=== PATIENT | male | born 1960 | race Caucasian/White ===

== ENCOUNTER 2016-12-10 13:47 | Inpatient (IN) | payer MEDICARE, OTHER ==
[~2016-12-10] VITALS: Ht 182.9 cm; Wt 68.0 kg
[~2016-12-10 13:47] MED LIST: /ADVA50050; /PANT40TA PO; APAP325T PO; CARA1TAB2 PO; CELE20TA; CHLO0.124 MT; CIPR25SS OR; CIPR500S PO; CIPR500T89 PO; CLON1TAB PO; DILA2TAB2 PO; DILAUDID PO; DRON2.5C4 PO; ENTO3CAP5 PO; ERYT25TA PO; FERR325T3 PO; FLAG500T OR; FLAG500T PO; FOLI1TAB2 PO; FOLI1TAB86 PO; GUAI100S7 PO; HEPA500020 SQ; IBUP400T OR; IMOD2TAB16 PO; INSUH10VL SC; LEVS0.123 SL; LOPE2TAB PO; LOPE2TAB3 PO; LOPERAMIDE PO; LYRI75CA PO; MAGN1TAB25 PO; MAGN200T3 PO; MAGN400T5 PO; MAGN500T PO; MARI10CA PO; MESA24CASA PO; METO10TA2 PO; METR1CAP PO; MICR10CA PO; MOBI7.5T10 PO; MS C30TA PO; MYLASSUD OR; MYLI40DR PO; NAPRPOW4 PO; NEUR300C PO; NEUR600T PO; NEXI20CA PO; NEXI40CA PO; NEXIUM PO; NICO14DI3 TD; NICO21DI26 EXT; NICO21DI4 TD; NICO21DI5 TD; NICO21PAT TD; NYST10CR TOP; ONDA4INJ48 IV; ONDA4TAB6 PO; OXYC-517 PO; OXYC15TA76 PO; OXYC1SOL PO; OXYC5CAP28 PO; PENT500C PO; PENT500C4 PO; PENTASA MT; PENTASA PO; PERC5TAB PO; PERCOCET PO; POTA20TA2; PRED10TA2 OR; PRED1TAB32 PO; PRIL40CA PO; PROT1TAB2 PO; QUES4POW PO; QUET1TAB7 PO; REGL10TA6 PO; REME15TA PO; SALI0.9I2 IV; SERO50TA PO; SUCR1SS PO; TRAZ100T; TYLE1TAB5 PO; TYLE325T5 PO; Thiamine Hcl PO; VANC125C2 PO; VIT D PO; VITA100T60 PO; VITMTA PO; ZOFR8TAB PO; ZOFRAN SL; ZOLO100T PO; magnesium PO; tpn IV
[2016-12-10] MEDS ORDERED: OXYC1SOL PO (13:59)
[2016-12-10] MEDS ORDERED: IBUP600T26 PO (13:59)
[2016-12-10] MEDS ORDERED: PRIL20CA9 PO (13:59)
[2016-12-10] MEDS ORDERED: KETOROLAC 30 MG/ML VIAL (J1885) IV ONE (14:30)
[2016-12-10] MEDS ORDERED: ONDANSETRON 4MG/2ML VIAL (J2405) IV ONE (14:30)
[2016-12-10] MEDS ORDERED: NS 1,000 ML IV ONE (14:30)
[2016-12-10] MEDS ORDERED: PANTOPRAZOLE 40MG INJ (PROTONIX) (C9113) IV ONE (14:30)
[2016-12-10 15:00] LABS: BASO % 0.3 % (0.0-1.0); EOS # 0.3 K/mm3 (0.0-0.50); EOS % 2.2 % (0.0-3.0); LARGE UNSTAINED CELL # 0.1 K/mm3 (0.0-0.4); LARGE UNSTAINED CELL % 1.1 % (0.0-4.0); LYMPH # 2.2 K/mm3 (1.5-4.5); LYMPH % 16.5 % (24.0-44.0); MEAN CORPUSCULAR HEMOGLOBIN 29.6 pg (27.0-33.0); MEAN CORPUSCULAR HGB CONC 31.6 g/dl (32.0-36.5); MEAN CORPUSCULAR VOLUME 93.7 fl (80.0-96.0); MONO # 0.7 K/mm3 (0.0-0.8); MONO % 5.5 % (0.0-5.0); NEUTROPHILS # 9.3 K/mm3 (1.8-7.7); NEUTROPHILS % 74.3 % (36.0-66.0); PLATELET COUNT, AUTOMATED 345 k/mm3 (150-450); RED CELL DISTRIBUTION WIDTH 14.5 % (11.5-14.5); WHITE BLOOD COUNT 12.5 K/mm3 (4.0-10.0)
[2016-12-10 16:03] LABS: ALBUMIN 2.5 GM/DL (3.2-5.2); ALBUMIN/GLOBULIN RATIO 0.74 (1.00-1.93); ALKALINE PHOSPHATASE 103 U/L (45-117); ALT/SGPT 39 U/L (12-78); AMYLASE 127 U/L (25-115); ANION GAP 9 MEQ/L (8-16); AST/SGOT 50 U/L (15-37); BILIRUBIN,DIRECT < 0.1 MG/DL (0.0-0.2); BILIRUBIN,TOTAL 0.2 MG/DL (0.2-1.0); BLOOD UREA NITROGEN 20 MG/DL (7-18); CALCIUM LEVEL 7.9 MG/DL (8.5-10.1); CARBON DIOXIDE LEVEL 23 MEQ/L (21-32); CHLORIDE LEVEL 109 MEQ/L (98-107); CREATININE FOR GFR 0.82 MG/DL (0.70-1.30); GLOMERULAR FILTRATION RATE > 60.0 (>56); GLUCOSE, FASTING 116 MG/DL (70-105); POTASSIUM SERUM 4.5 MEQ/L (3.5-5.1); SODIUM LEVEL 141 MEQ/L (136-145); TOTAL PROTEIN 5.9 GM/DL (6.4-8.2)
[2016-12-10] MEDS ORDERED: ISOVUE-370 76% 100ML VIAL (Q9967) As Ordered ONE (16:12)
--- NOTE | 2016-12-10 16:43 | REP ---
Clinical: Left lower quadrant pain. Technique: Axial contrast enhanced images from the lung bases to the pubic symphysis using 100 ml Isovue 370 intravenous contrast material with coronal and sagittal re-formations. Comparison: 12/31/2015. Findings: Inflammatory changes in the left upper abdomen surrounding the distal pancreatic body and tail with a presumed pseudocyst measuring 2.3 cm maximal diameter which has slightly increased from prior examination as well as pancreatic parenchymal calcifications suggest acute pancreatitis with sequelae of prior/chronic pancreatitis. Liver, bilateral adrenal glands and kidneys are normal. Spleen demonstrates parenchymal calcifications suggesting prior granulomatous disease. Evidence for prior cholecystectomy. There is evidence for prior partial bowel resection and residual small and large bowel is without obstruction or acute inflammatory process. Pelvis demonstrates normal bladder and age appropriate prostate gland. No significant ascites. No obvious adenopathy. No free air. Abdominal aorta without aneurysm. Musculoskeletal structures intact. Lung bases demonstrate subtle/early right lower lobe infiltrate. Impression: 1. Findings described above suggest acute pancreatitis with sequelae of prior/chronic pancreatitis including 2.3 cm pseudocyst inseparable from the gastric cardia which is slightly increased from prior examination as well as pancreatic parenchymal calcifications. 2. Subtle early right lower lobe pneumonia. Signed by Rod Bernabe MD 12/10/2016 04:34 P
[2016-12-10] MEDS ORDERED: PERCOCET 5MG/325MG TAB PO PRN ×2 (17:15)
[2016-12-10] MEDS ORDERED: ONDANSETRON 4MG/2ML VIAL (J2405) IV PRN (17:15)
[2016-12-10] MEDS ORDERED: IPRATROPIUM 0.5MG/ALBUTEROL 2.5MG INH SOL UD 3ML (DUONEB)(J7620) NEB PRN (17:45)
[2016-12-10] MEDS ORDERED: HYDROmorphone HCL 2 MG/ML 1ML VIAL (J1170) IV PRN (17:45)
--- NOTE | 2016-12-10 17:48 | HPE ---
DATE OF ADMISSION: 12/10/2016 PRIMARY CARE PROVIDER: DONA Workman CODE STATUS: Full code. CURRENT LIVING CONDITION: The patient is currently an inmate with [facility]. CHIEF COMPLAINT: Abdominal pain for last 2 to 3 days. HISTORY OF PRESENT ILLNESS: Mr. Michaud is a familiar 55-year-old gentleman with known history of chronic/recurrent pancreatitis and Crohn disease, which is thought to be in remission; has quit drinking alcohol several times in the past, but states he has not had any recently since his incarceration began. He denies any tobacco use. He describes having epigastric abdominal pain with radiation to the back similar to previous episodes in the past. He denies any nausea, vomiting, no hematemesis. Bowel movements have been regular. Denies any hematochezia or melena. He was evaluated by the advance practice provider in the emergency department. He had an elevated lipase and findings on CT scan consistent with acute pancreatitis. He was given IV hydration already and given some pain medication, which is knocked his pain level from a 9 out of 10 to a 7 out 10 currently. The hospitalist service was called for admission for admission. PAST MEDICAL HISTORY: 1. Recurrent pancreatitis. 2. Crohn disease. 3. Gastroesophageal reflux disease (GERD). 4. Malnutrition. PAST SURGICAL HISTORY: 1. Cholecystectomy 2. Appendectomy. 3. Hernia repair. 4. Status post bowel perforation due to Crohn disease, colostomy and reversal by Dr. Silveira several years ago. SOCIAL HISTORY: He as a previous history of drinking alcohol, quit several months ago. Denies any tobacco use currently. Denies recent travel. No sick contacts. FAMILY HISTORY: Both parents her . States that he is only aware that his mother from multiple complications from cancer. ALLERGIES: PENICILLIN, MORPHINE. HOME MEDICATIONS: - Imodium as needed - Remeron 50 mg daily - Neurontin 900 mg three times a day - oxycodone as needed - Meloxicam 7.5 mg daily We will wait for pharmacy to further reconcile his home medication list. REVIEW OF SYSTEMS: Constitutional: He denies fevers, chills or rigors. Has had some nausea with no vomiting, decreased appetite. HEENT: Denies headache, lightheadedness, dizziness, blurry vision, double vision or tinnitus. No difficulty with speech or swallow. Pulmonary: Denies productive sputum cough or hemoptysis. Cardiovascular: No paroxysmal nocturnal dyspnea (PND), orthopnea. No substernal chest pain. GI: Describes having some epigastric pain with some radiation. Has had regular bowel movements. Denies any hematochezia or melena. : No dysuria, frequency, or hematuria. Musculoskeletal: No bone loss or joint pain, swelling or erythema. Neuro: No paresthesias or paralysis. Endocrine: Negative for diabetes. Negative for thyroid disorder. Lymphatics: No lumps, bumps, swelling in neck, axilla or groin. No night sweats. No weight loss. Hematology: No bleeding or bruises. No prior history of venous thromboembolism. Oncology: No history of cancer. Psychiatric: No history of depression, suicidal ideation or visual hallucination. 10-point review of systems complete, pertinent positives are listed. PHYSICAL EXAMINATION: Temperature is 98.2, pulse 86, respiratory rate 18, BP 137/74, SPO2 100% on room air. General: The patient appears to be in no acute distress, alert, pleasant. HEENT: Unremarkable. Lungs: Clear. Heart: Regular rate and rhythm. Abdomen: Epigastric tenderness. No rebound. Positive bowel sounds. Extremities: No edema or calf tenderness. Neuro: Cranial nerves II through XII grossly intact. No focal deficits. LABORATORY DATA: White count 12.5, hemoglobin 11.5 and platelets for 345,000, sodium 141, potassium 4.5, chloride 109, bicarb 23, anion gap 9, BUN is 20, creatinine 0.82, glucose 116, total bilirubin 0.2, direct bilirubin less than 0.1, AST is 50, ALT 39, alkaline phosphatase 103, albumin is 2.5, lipase 543, amylase 127. Urinalysis is clear. Urine cultures pending. CT ABDOMEN AND PELVIS: Acute pancreatitis with sequela of prior chronic pancreatitis including 2.3 cm pseudocyst inseparable from gastric cardia which is slightly increased from prior examination as well as pancreatic parenchymal calcifications. Subtle early right lower lobe pneumonia. IMPRESSION: Mr. Michaud is a 56-year-old gentleman with prior history of Crohn and recurrent pancreatitis, presents to the emergency department abdominal pain, elevated lipase and CT findings consistent with pancreatitis and known pseudocyst. Will need to be admitted with IV fluids, pain control and bowel rest. PROBLEM LIST: 1. Acute/recurrent pancreatitis. 2. History of pseudocyst of the pancreas. 3. Possible right lower lobe pneumonia. 4. GERD. 5. Protein calorie malnutrition. PLAN: The patient will be admitted to med-surg, will continue with IV fluids, bowel rest, pain control. Due to findings of possible right lower lobe pneumonia will go ahead and start him on IV Levaquin. Deep venous thrombosis (DVT) prophylaxis with heparin. Patient and Family Services (PFS) consult as well as physical therapy consult and will see how he progresses over the next 24-48 hours.
[2016-12-10] MEDS ORDERED: LYRI100C10 PO (17:52)
[2016-12-10] MEDS ORDERED: OXYC1TAB23 PO (17:52)
[2016-12-10] MEDS ORDERED: LOPERAMIDE 2 MG CAP PO PRN (18:15)
[2016-12-10] MEDS ORDERED: METOCLOPRAMIDE 10 MG TAB PO PRN (18:15)
[2016-12-10] MEDS: NS 1,000 ML IV SCH ×2 (18:29→23:26)
[2016-12-10] MEDS: HYDROmorphone HCL 1 MG/ML SYRINGE (J1170) IV PRN (18:36)
[2016-12-10] MEDS: OMEPRAZOLE 20 MG CAP PO SCH (18:38)
[2016-12-10] MEDS: LevoFLOXacin IV 500 MG in APPROPRIATE DILUENT 1 EA IV SCH (20:28)
[2016-12-10] MEDS: ACETAMINOPHEN TAB 650MG DOSE (2X325MG) PO PRN (20:28)
[2016-12-10] MEDS: PREGABALIN 100 MG CAP (LYRICA) PO SCH (20:29)
[2016-12-10] MEDS: MIRTAZAPINE 15 MG TAB PO SCH (20:29)
[2016-12-10] MEDS: MELOXICAM (MOBIC) 7.5 MG TAB PO SCH (20:29)
[2016-12-10] MEDS: QUEtiapine FUMARATE 50 MG TAB PO SCH (20:29)
[2016-12-10] MEDS: GABAPENTIN 300 MG CAP PO SCH (20:29)
[2016-12-10] MEDS: HEPARIN SOD (PORCINE) 5000 UNITS/ML VIAL SQ SCH (21:11)
[2016-12-10] MEDS: oxyCODONE 5MG TAB PO PRN (21:11)
[2016-12-10 22:00] VITALS: BP 124/73
[2016-12-10] MEDS ORDERED: IBUPROFEN 600 MG TAB PO PRN (22:00)
[2016-12-11] MEDS: NS 1,000 ML IV SCH ×6 (03:30→21:07)
[2016-12-11] MEDS: oxyCODONE 5MG TAB PO PRN ×3 (03:30→19:44)
[2016-12-11] MEDS: HEPARIN SOD (PORCINE) 5000 UNITS/ML VIAL SQ SCH ×3 (05:23→21:06)
[2016-12-11] MEDS: HYDROmorphone HCL 1 MG/ML SYRINGE (J1170) IV PRN ×3 (05:28→09:01)
[2016-12-11 06:00] VITALS: BP 135/77
[2016-12-11 07:33] LABS: ALBUMIN/GLOBULIN RATIO 0.53 (1.00-1.93); ALKALINE PHOSPHATASE 86 U/L (45-117); ALT/SGPT 40 U/L (12-78); ANION GAP 8 MEQ/L (8-16); AST/SGOT 51 U/L (15-37); BILIRUBIN,TOTAL 0.3 MG/DL (0.2-1.0); BLOOD UREA NITROGEN 14 MG/DL (7-18); CALCIUM LEVEL 7.8 MG/DL (8.5-10.1); CARBON DIOXIDE LEVEL 21 MEQ/L (21-32); CHLORIDE LEVEL 111 MEQ/L (98-107); CREATININE FOR GFR 0.67 MG/DL (0.70-1.30); GLOMERULAR FILTRATION RATE > 60.0 (>56); GLUCOSE, FASTING 74 MG/DL (70-105); POTASSIUM SERUM 4.2 MEQ/L (3.5-5.1); SODIUM LEVEL 140 MEQ/L (136-145); TOTAL PROTEIN 5.8 GM/DL (6.4-8.2)
[2016-12-11] MEDS: IPRATROPIUM 0.5MG/ALBUTEROL 2.5MG INH SOL UD 3ML (DUONEB)(J7620) NEB SCH ×3 (08:00→23:19)
[2016-12-11] MEDS: OMEPRAZOLE 20 MG CAP PO SCH (09:00)
[2016-12-11] MEDS: GABAPENTIN 300 MG CAP PO SCH ×3 (09:01→21:06)
[2016-12-11] MEDS: PREGABALIN 100 MG CAP (LYRICA) PO SCH ×3 (09:01→21:06)
[2016-12-11] MEDS: ACETAMINOPHEN TAB 650MG DOSE (2X325MG) PO PRN ×2 (09:18→19:32)
[2016-12-11 09:36] LABS: MEAN CORPUSCULAR HEMOGLOBIN 30.8 pg (27.0-33.0); MEAN CORPUSCULAR HGB CONC 32.6 g/dl (32.0-36.5); MEAN CORPUSCULAR VOLUME 94.4 fl (80.0-96.0); RED CELL DISTRIBUTION WIDTH 14.4 % (11.5-14.5)
[2016-12-11 14:00] VITALS: BP 144/84
--- NOTE | 2016-12-11 15:31 | IPNPDOC ---
Subjective Date Seen The patient was seen on 12/11/16. Subjective Chief Complaint/HPI The patient is a 56-year-old male admitted with a reason for visit of Acute Pancreatitis. Events since last encounter pt seen and examined, complaining of abd pain Constitutional: Denies: Chills, Fever, Night Sweats Gastrointestinal: Reports: Abdominal Pain, Denies: Constipation, Diarrhea, Nausea, Vomiting Objective Physical Examination General Exam: Positive: Alert, Cooperative, No Acute Distress Eye Exam: Positive: PERRLA Neck Exam: Positive: Supple, Negative: JVD, thyromegaly Chest Exam: Positive: Clear to auscultation, Normal air movement Abdomen Exam: Positive: Normal bowel sounds, Soft, Negative: Hepatospenomegaly, Tenderness Extremity Exam: Positive: Normal pulses, Negative: Clubbing, Cyanosis, Edema Assessment /Plan Problems (1) Abdominal pain Onset Date: 04/15/2014 Status: Chronic Problem Text: * pt has chronic pain but has been complaining of pain in his abd * he had elevated lipase level on admission and acute pancreatitis * now lipase level normalized * will start clear liquid diet advance as tolerated * if able to tolerate diet will discontinue Dilaudid * order MRCP per surgery recommendation (2) Elevated lipase Onset Date: 04/15/2014 Status: Resolved (3) Crohn disease Status: Chronic (4) Chronic pancreatitis Status: Acute Problem Text: * will order MRCP (5) Pancreatic pseudocyst Status: Chronic Response to Treatment: Stable Problem Text: * pt had pseudocyst on CT in the past * slight increase in size * spoke with surgeon emotional disabilities teacher dr alcantara who didn't recommend any drainage at this time given it's current size and the fact that it has not increased in size * he recommended MRCP and repeat CT in 3 months if MRCP is negative Plan/VTE VTE Prophylaxis Ordered?: Yes VS, I&O, 24H, Fishbone Vital Signs/I&O Vital Signs Date Time Temp Pulse Resp B/P Pulse Ox O2 Delivery O2 Flow Rate FiO2 12/11/16 13:39 18 12/11/16 09:01 Room Air 12/11/16 06:00 98.2 68 135/77 99 I&O- Last 24 Hours up to 6 AM 12/11/16 06:00 Intake Total 120 ml Output Total 1700 ml Balance -1580 ml Laboratory Data 24H LABS Laboratory Tests 2 12/10/16 15:27: Aspartate Amino Transf (AST/SGOT) 50H, Alanine Aminotransferase (ALT/SGPT) 39, Alkaline Phosphatase 103, Total Bilirubin 0.2, Direct Bilirubin < 0.1, Albumin 2.5L, Albumin/Globulin Ratio 0.74L, Amylase Level 127H, Anion Gap 9, Calcium Level 7.9L, Glomerular Filtration Rate > 60.0, Lipase 543H, Total Protein 5.9L 12/11/16 06:40: Aspartate Amino Transf (AST/SGOT) 51H, Alanine Aminotransferase (ALT/SGPT) 40, Alkaline Phosphatase 86, Total Bilirubin 0.3, Albumin 2.0L, Albumin/Globulin Ratio 0.53L, Anion Gap 8, Calcium Level 7.8L, Glomerular Filtration Rate > 60.0 , Lipase 310, Total Protein 5.8L, Blood Urea Nitrogen 14, Creatinine 0.67L, Sodium Level 140, Potassium Level 4.2, Chloride Level 111H, Carbon Dioxide Level 21 12/11/16 13:35: Prostate Specific Antigen 0.36 CBC/BMP Laboratory Tests 12/10/16 15:27 12/11/16 06:40 Calcium Level 7.8 L, Aspartate Amino Transf (AST/SGOT) 51 H, Alanine Aminotransferase (ALT/SGPT) 40, Alkaline Phosphatase 86, Total Bilirubin 0.3, Total Protein 5.8 L, Albumin 2.0 L 12/11/16 09:02 Red Blood Count 3.61 L, Mean Corpuscular Volume 94.4, Mean Corpuscular Hemoglobin 30.8, Mean Corpuscular Hemoglobin Concent 32.6, Red Cell Distribution Width 14.4 ZARA SCHAFER DO Dec 11, 2016 15:31
[2016-12-11] MEDS: MORPHINE 2 MG/ML 1ML SYRINGE IV PRN (16:00)
[2016-12-11] MEDS: LevoFLOXacin IV 500 MG in APPROPRIATE DILUENT 1 EA IV SCH (19:43)
[2016-12-11] MEDS: MELOXICAM (MOBIC) 7.5 MG TAB PO SCH (21:06)
[2016-12-11] MEDS: MIRTAZAPINE 15 MG TAB PO SCH (21:06)
[2016-12-11] MEDS: QUEtiapine FUMARATE 50 MG TAB PO SCH (21:06)
[2016-12-11 22:00] VITALS: BP 132/84
[2016-12-12] MEDS: NS 1,000 ML IV SCH ×6 (02:58→21:03)
[2016-12-12] MEDS: oxyCODONE 5MG TAB PO PRN ×4 (04:06→22:48)
[2016-12-12] MEDS: HEPARIN SOD (PORCINE) 5000 UNITS/ML VIAL SQ SCH ×3 (05:19→21:03)
[2016-12-12] MEDS: ACETAMINOPHEN TAB 650MG DOSE (2X325MG) PO PRN ×3 (05:23→21:03)
[2016-12-12] MEDS: MORPHINE 2 MG/ML 1ML SYRINGE IV PRN ×4 (05:57→19:27)
[2016-12-12 06:00] VITALS: BP 124/72
[2016-12-12 07:18] LABS: BLOOD UREA NITROGEN 10 MG/DL (7-18); CREATININE FOR GFR 0.76 MG/DL (0.70-1.30); GLUCOSE, FASTING 84 MG/DL (70-105); MEAN CORPUSCULAR HEMOGLOBIN 30.3 pg (27.0-33.0); MEAN CORPUSCULAR HGB CONC 32.5 g/dl (32.0-36.5); MEAN CORPUSCULAR VOLUME 93.2 fl (80.0-96.0); RED CELL DISTRIBUTION WIDTH 14.5 % (11.5-14.5); WHITE BLOOD COUNT 10.6 K/mm3 (4.0-10.0)
[2016-12-12 07:19] LABS: ALBUMIN 2.4 GM/DL (3.2-5.2); ALKALINE PHOSPHATASE 93 U/L (45-117); ALT/SGPT 39 U/L (12-78); ANION GAP 5 MEQ/L (8-16); AST/SGOT 50 U/L (15-37); BILIRUBIN,TOTAL 0.4 MG/DL (0.2-1.0); CALCIUM LEVEL 8.6 MG/DL (8.5-10.1); CARBON DIOXIDE LEVEL 28 MEQ/L (21-32); CHLORIDE LEVEL 108 MEQ/L (98-107); GLOMERULAR FILTRATION RATE > 60.0 (>56); POTASSIUM SERUM 4.2 MEQ/L (3.5-5.1); SODIUM LEVEL 141 MEQ/L (136-145); TOTAL PROTEIN 6.4 GM/DL (6.4-8.2)
[2016-12-12] MEDS: IPRATROPIUM 0.5MG/ALBUTEROL 2.5MG INH SOL UD 3ML (DUONEB)(J7620) NEB SCH ×2 (08:22→15:18)
[2016-12-12] MEDS: GABAPENTIN 300 MG CAP PO SCH ×3 (09:22→21:02)
[2016-12-12] MEDS: OMEPRAZOLE 20 MG CAP PO SCH (09:22)
[2016-12-12] MEDS: PREGABALIN 100 MG CAP (LYRICA) PO SCH ×3 (09:22→21:02)
--- NOTE | 2016-12-12 09:23 | REP ---
MRI ABDOMEN WITHOUT CONTRAST (MRCP): 12/11/2016 COMPARISON: CT abdomen 12/31/2015. CLINICAL HISTORY: Chronic pancreatitis, abdominal pain upper abdomen radiating around to the back. Tech notes indicate left-sided pain. TECHNIQUE: Coronal TrueFISP, axial T2 HASTE and thick slab heavily T2-weighted sequences rotated about the longitudinal axis of the biliary tree along with a heavily T2-weighted coronal volume acquisition with MIP reformatting rotated about the longitudinal axis of the body. There is no splenomegaly or hepatomegaly. I see no gross focal hepatic mass in the portion is of liver included. Likewise that portion of spleen included is without a focal lesion. There is no intrahepatic biliary dilatation. The gallbladder is surgically absent. The hyperintense T2 focus 2.1 x 1.5 x 1 cm between the tail of the pancreas and stomach which corresponds to the same small fluid collection present on CT last year suggesting a small pseudocyst. It is marginally larger with previous maximum diameters 13 mm. No other significant pancreatic findings at this time. Adrenal glands are without mass. Kidneys show no hydronephrosis or visible mass, cyst or perinephric fluid on the right. T trace amount of fluid signal about the left kidney. There is no intrahepatic biliary dilatation. Common hepatic duct has a maximum diameter of 5.2 mm. In the juvenal hepatis, it has a maximum diameter CBD is 6.3 mm. Within the pancreatic head it measures 5.3 mm. There is normal tapering at the ampule. There is no filling defects or stricture of the common duct. There is no dilatation of the pancreatic duct evident. IMPRESSION: 1. Status post cholecystectomy with common bile duct without abnormal dilatation, stricture or filling defect. It tapers normally at the ampulla in the pancreatic head. 2. Pancreatic duct not abnormally dilated. 3. Adjacent to the tail of pancreas and gastric wall, there is a presumed pseudocyst now about 2.1 cm in greatest diameter, previously 1.[address] last year. No other significant finding. Signed by Stephon Stout MD 12/12/2016 08:06 P
[2016-12-12 10:36] LABS: CARCINOEMBRYONIC ANTIGEN 1.5 NG/ML (<2.5)
--- NOTE | 2016-12-12 12:50 | IPNPDOC ---
Subjective Date Seen The patient was seen on 12/12/16. Subjective Chief Complaint/HPI The patient is a 56-year-old male admitted with a reason for visit of Acute Pancreatitis. Events since last encounter pt seen and examined still has a lot of pain but tolerated diet Objective Physical Examination General Exam: Positive: Alert, Cooperative, No Acute Distress Eye Exam: Positive: PERRLA Neck Exam: Positive: Supple, Negative: JVD, thyromegaly Chest Exam: Positive: Clear to auscultation, Normal air movement Abdomen Exam: Positive: Normal bowel sounds, Soft, Negative: Hepatospenomegaly, Tenderness Extremity Exam: Positive: Normal pulses, Negative: Clubbing, Cyanosis, Edema Assessment /Plan Problems (1) Abdominal pain Onset Date: 04/15/2014 Status: Chronic Problem Text: * pt has chronic pain but has been complaining of pain in his abd * he had elevated lipase level on admission and acute pancreatitis * now lipase level normalized * MRCP showed pseudocast getting bigger (2) Elevated lipase Onset Date: 04/15/2014 Status: Resolved (3) Crohn disease Status: Chronic (4) Chronic pancreatitis Status: Acute Problem Text: * mrcp showed psuedocyst increased in size (5) Pancreatic pseudocyst Status: Chronic Response to Treatment: Stable Problem Text: * pt had pseudocyst on CT in the past * slight increase in size * MRCP showed increase in size when compared to last year Plan/VTE VTE Prophylaxis Ordered?: Yes VS, I&O, 24H, Fishbone Vital Signs/I&O Vital Signs Date Time Temp Pulse Resp B/P Pulse Ox O2 Delivery O2 Flow Rate FiO2 12/12/16 11:00 16 12/12/16 06:00 98.9 72 124/72 98 Room Air I&O- Last 24 Hours up to 6 AM 12/12/16 06:00 Intake Total 5510 ml Output Total 5875 ml Balance -365 ml Laboratory Data 24H LABS Laboratory Tests 2 12/11/16 13:35: CA 19-9 Antigen 15.2, Carcinoembryonic Antigen 1.5, Prostate Specific Antigen 0.36 12/12/16 06:12: Blood Urea Nitrogen 10, Creatinine 0.76, Sodium Level 141, Potassium Level 4.2, Chloride Level 108H, Carbon Dioxide Level 28, Calcium Level 8.6, Aspartate Amino Transf (AST/SGOT) 50H, Alanine Aminotransferase (ALT/SGPT) 39, Alkaline Phosphatase 93, Total Bilirubin 0.4, Total Protein 6.4, Albumin 2.4L, Albumin/ Globulin Ratio 0.60L, Anion Gap 5L, Glomerular Filtration Rate > 60.0, Lipase 255 CBC/BMP Laboratory Tests 12/12/16 06:12 Calcium Level 8.6, Aspartate Amino Transf (AST/SGOT) 50 H, Alanine Aminotransferase (ALT/SGPT) 39, Alkaline Phosphatase 93, Total Bilirubin 0.4, Total Protein 6.4, Albumin 2.4 L, Red Blood Count 3.32 L, Mean Corpuscular Volume 93.2, Mean Corpuscular Hemoglobin 30.3, Mean Corpuscular Hemoglobin Concent 32.5, Red Cell Distribution Width 14.5 ZARA SCHAFER DO Dec 12, 2016 12:50
[2016-12-12] MEDS: LevoFLOXacin 500 MG TABLET PO SCH (13:21)
[2016-12-12 14:00] VITALS: BP 164/92
[2016-12-12] MEDS: MIRTAZAPINE 15 MG TAB PO SCH (21:02)
[2016-12-12] MEDS: MELOXICAM (MOBIC) 7.5 MG TAB PO SCH (21:02)
[2016-12-12] MEDS: QUEtiapine FUMARATE 50 MG TAB PO SCH (21:02)
[2016-12-12 22:00] VITALS: BP 143/78
[2016-12-13] MEDS: NS 1,000 ML IV SCH ×3 (00:33→08:54)
[2016-12-13] MEDS: oxyCODONE 5MG TAB PO PRN ×2 (05:45→11:43)
[2016-12-13] MEDS: HEPARIN SOD (PORCINE) 5000 UNITS/ML VIAL SQ SCH (05:45)
[2016-12-13] MEDS: LevoFLOXacin 500 MG TABLET PO SCH (05:45)
[2016-12-13] MEDS: ACETAMINOPHEN TAB 650MG DOSE (2X325MG) PO PRN (05:49)
[2016-12-13 06:00] VITALS: BP 138/76
[2016-12-13 06:20] LABS: MEAN CORPUSCULAR HGB CONC 33.5 g/dl (32.0-36.5); MEAN CORPUSCULAR VOLUME 92.7 fl (80.0-96.0); RED CELL DISTRIBUTION WIDTH 14.2 % (11.5-14.5); WHITE BLOOD COUNT 9.7 K/mm3 (4.0-10.0)
[2016-12-13 06:44] LABS: ALBUMIN 2.1 GM/DL (3.2-5.2); ALBUMIN/GLOBULIN RATIO 0.51 (1.00-1.93); ALKALINE PHOSPHATASE 98 U/L (45-117); ALT/SGPT 34 U/L (12-78); ANION GAP 8 MEQ/L (8-16); AST/SGOT 42 U/L (15-37); BILIRUBIN,TOTAL 0.3 MG/DL (0.2-1.0); BLOOD UREA NITROGEN 9 MG/DL (7-18); CALCIUM LEVEL 7.9 MG/DL (8.5-10.1); CARBON DIOXIDE LEVEL 25 MEQ/L (21-32); CHLORIDE LEVEL 107 MEQ/L (98-107); CREATININE FOR GFR 0.68 MG/DL (0.70-1.30); GLOMERULAR FILTRATION RATE > 60.0 (>56); GLUCOSE, FASTING 100 MG/DL (70-105); SODIUM LEVEL 140 MEQ/L (136-145); TOTAL PROTEIN 6.2 GM/DL (6.4-8.2)
[2016-12-13] MEDS: IPRATROPIUM 0.5MG/ALBUTEROL 2.5MG INH SOL UD 3ML (DUONEB)(J7620) NEB SCH ×2 (07:45)
[2016-12-13] MEDS: OMEPRAZOLE 20 MG CAP PO SCH (09:14)
[2016-12-13] MEDS: GABAPENTIN 300 MG CAP PO SCH (09:14)
[2016-12-13] MEDS: PREGABALIN 100 MG CAP (LYRICA) PO SCH (09:24)
[2016-12-13 09:25] VITALS: BP 126/81
--- NOTE | 2016-12-14 13:16 | DSES ---
DATE OF ADMISSION: 12/10/2016 DATE OF DISCHARGE: 12/13/2016 REASON FOR ADMISSION: Pancreatitis. FINAL DIAGNOSES: 1. Chronic pancreatitis with pseudocyst. 2. History of chronic pain. 3. History of Crohn's disease with no acute flare-ups. 4. History of gastroesophageal reflux disease. 5. History of recurrent pancreatitis. HISTORY OF PRESENT ILLNESS: The patient is a 55-year-old male with known history of chronic recurrent pancreatitis with pseudocyst [facility] complaining of epigastric abdominal pain. The patient has history of alcohol abuse in the past. Currently incarcerated, stated he has not had anything to drink since then. He described the pain as epigastric radiating to the back similar to prior episodes. Denies any nausea or vomiting. No hematemesis. Bowel movements have been regular. No blood in the stool or black tarry stools. CT scan was consistent with acute pancreatitis. He was started on IV fluids and IV pain control and he was admitted under hospitalist service. HOSPITAL COURSE: CT scan showed 2.3 cm pseudocyst that was seen on prior examination, but had a slight increase. I spoke with surgery, but no official consult was placed. They recommended MRCP to make sure that there is no pancreatic duct malformation or any abnormalities. MRCP was done and showed pseudocyst was there at 2.2 cm, which had increased in size when compared to prior imaging last year when it was 1.[address] scan. No other significant findings on MRI. The patient's lipase level had normalized by the following day. He was tolerating diet. He was, however, still complaining of pain which per his history the patient always has abdominal pain. Once patient was tolerating diet and MRI results came back, the patient was discharged back to the [facility] facility with the recommendation that he will need gastroenterology able to perform endoscopic procedures or surgeons able to perform endoscopic drainage of the pseudocyst. We do not have these services here currently. It is not an emergent need for transfer, however, the patient will need to followup on his pseudocyst with possible drainage in the near future. Otherwise, the patient had had no fevers, no white count. The rest of his blood work normalized and he was discharged back. Discharge condition was stable. DISCHARGE MEDICATIONS: Include - gabapentin 600 mg by mouth three times a day - ibuprofen 600 mg by mouth every six hours as needed pain - loperamide 2 mg as directed for diarrhea - Mobic 7.5 mg at bedtime - metoclopramide 10 mg at bedtime as needed nausea - Remeron 15 mg by mouth at bedtime - Prilosec 20 mg daily - Seroquel 50 mg at bedtime Oxycodone and Lyrica were discontinued since patient is not allowed these medications in a penitentiary facility. Diet low fat diet. Activities as tolerated. FOLLOWUP: The patient is to follow up with his doctor in the facility upon return and he will need GI followup in [place] for endoscopic drainage and resection of pseudocyst.
== END 2016-12-13 11:48 | DRG 282 ==
LOC: M ED 14:52 → M ED INP 17:01 → M MSPAV 18:22
PROVIDERS: ADMIT Hospitalist; ATTEND Internal Medicine
DX: K85.90 Acute pancreatitis without necrosis or infection, unspecified (principal); E46 Unspecified protein-calorie malnutrition; K50.90 Crohn's disease, unspecified, without complications; K21.9 Gastro-esophageal reflux disease without esophagitis; F10.21 Alcohol dependence, in remission; R10.13 Epigastric pain; Z79.899 Other long term (current) drug therapy; Z90.49 Acquired absence of other specified parts of digestive tract; Z88.0 Allergy status to penicillin; Z88.5 Allergy status to narcotic agent; K86.1 Other chronic pancreatitis; K86.3 Pseudocyst of pancreas

== ENCOUNTER → 2017-10-06 | Outpatient (REF) | payer OTHER ==
[2017-10-06 12:38] LABS: BASO % 0.4 % (0.0-1.0); EOS # 0.1 10^3/uL (0.0-0.50); EOS % 1.8 % (0.0-3.0); HEMATOCRIT 42.6 % (42.0-52.0); HEMOGLOBIN 14.5 g/dl (14.0-18.0); IMMATURE GRANULOCYTE % 0.4 % (0-0); LYMPH # 2.2 10^3/uL (1.5-4.5); LYMPH % 32.1 % (24.0-44.0); MEAN CORPUSCULAR HEMOGLOBIN 31.3 pg (27.0-33.0); MEAN CORPUSCULAR VOLUME 91.8 fl (80.0-96.0); MONO # 0.8 10^3/uL (0.0-0.8); MONO % 11.3 % (0.0-5.0); NEUTROPHILS # 3.7 10^3/uL (1.8-7.7); PLATELET COUNT, AUTOMATED 208 10^3/uL (150-450); RED BLOOD COUNT 4.64 10^6/uL (4.30-6.10); RED CELL DISTRIBUTION WIDTH 13.2 % (11.5-14.5); WHITE BLOOD COUNT 6.8 10^3/uL (4.0-10.0)
[2017-10-06 13:21] LABS: ALBUMIN 3.9 GM/DL (3.2-5.2); ALBUMIN/GLOBULIN RATIO 0.81 (1.00-1.93); ALKALINE PHOSPHATASE 190 U/L (45-117); ALT/SGPT 129 U/L (12-78); ANION GAP 12 MEQ/L (8-16); AST/SGOT 163 U/L (7-37); BILIRUBIN,TOTAL 0.7 MG/DL (0.2-1.0); BLOOD UREA NITROGEN 14 MG/DL (7-18); CALCIUM LEVEL 9.4 MG/DL (8.5-10.1); CARBON DIOXIDE LEVEL 24 MEQ/L (21-32); CHLORIDE LEVEL 106 MEQ/L (98-107); CREATININE FOR GFR 0.87 MG/DL (0.70-1.30); GLOMERULAR FILTRATION RATE > 60.0 (>56); GLUCOSE, FASTING 96 MG/DL (70-100); POTASSIUM SERUM 3.6 MEQ/L (3.5-5.1); SODIUM LEVEL 142 MEQ/L (136-145); TOTAL PROTEIN 8.7 GM/DL (6.4-8.2)
[2017-10-07 11:50] LABS: HEPATITIS B SURFACE ANTIGEN NEGATIVE (NEGATIVE)
[2017-10-07 11:58] LABS: HIV 1&2 SCREEN CENTAUR NEGATIVE (NEGATIVE)
[2017-10-07 12:06] LABS: HEPATITIS B SURFACE ANTIBODY NEGATIVE (POSITIVE)
[2017-10-07 14:06] LABS: HEPATITIS C VIRUS ABY INDEX > 11.0 INDEX (<0.8)
[2017-10-10 00:10] LABS: HCV RNA NAA QUALITATIVE Positive (Negative)
== END ==
LOC: M SFHCPLAZ 09:38
DX: B19.20 Unspecified viral hepatitis C without hepatic coma (principal)

== ENCOUNTER 2017-11-28 00:57 | Emergency (ER) | payer OTHER | END 2017-11-28 01:36 | disposition left against medical advice (07) | LOC: M ED 01:36 | DX: Z53.29 Procedure and treatment not carried out because of patient's decision for other reasons (principal) ==

== ENCOUNTER → 2017-12-23 | Outpatient (REF) | payer MEDICARE, MEDICAID, OTHER ==
[2017-12-31 00:07] LABS: AMPHETAMINE SCREEN, URINE Negative ng/mL (Cutoff=1000); BARBITURATES SCREEN, URINE Negative ng/mL (Cutoff=200); BENZODIAZEPINES, URINE SCREEN Negative ng/mL (Cutoff=200); CANNABINOID SCREEN, URINE See Final Results ng/mL (Cutoff=20); CANNABINOID, URINE Comment: (Cutoff=20); COCAINE SCREEN, URINE Negative ng/mL (Cutoff=300); CREATININE, URINE 215.7 mg/dL (20.0-300.0); FENTANYL URINE SCREEN Negative pg/mL (Cutoff=2000); METHADONE, URINE SCREEN Negative ng/mL (Cutoff=300); NALOXONE RESULT Negative (.); OPIATE SCREEN, URINE Negative ng/mL (Cutoff=300); OXYCODONE, SCREEN, URINE Negative ng/mL (Cutoff=100); PCP SCREEN, URINE Negative ng/mL (Cutoff=25); SPECIFIC GRAVITY, URINE 1.022 (.); URINE BUPRENORPHINE Negative ng/mL (Cutoff=10); pH, URINE 5.6 (4.5-8.9)
== END ==
LOC: M LAB REF 19:24
DX: F11.21 Opioid dependence, in remission (principal)
CPT/HCPCS: G0480

== ENCOUNTER → 2018-01-06 | Outpatient (CLI) | payer MEDICARE, MEDICAID ==
[2018-01-06 15:48] LABS: HEMATOCRIT 40.4 % (42.0-52.0); HEMOGLOBIN 13.9 g/dl (13.5-17.5); MEAN CORPUSCULAR HGB CONC 34.4 g/dl (32.0-36.5); MEAN CORPUSCULAR VOLUME 92.9 fl (80.0-96.0); PLATELET COUNT, AUTOMATED 223 10^3/uL (150-450); RED BLOOD COUNT 4.35 10^6/uL (4.30-6.10); RED CELL DISTRIBUTION WIDTH 13.2 % (11.5-14.5); WHITE BLOOD COUNT 7.7 10^3/uL (4.0-10.0)
[2018-01-06 16:11] LABS: ALBUMIN 3.5 GM/DL (3.2-5.2); ALKALINE PHOSPHATASE 147 U/L (45-117); ALT/SGPT 40 U/L (12-78); ANION GAP 8 MEQ/L (8-16); AST/SGOT 55 U/L (7-37); BILIRUBIN,TOTAL 0.4 MG/DL (0.2-1.0); BLOOD UREA NITROGEN 14 MG/DL (7-18); CALCIUM LEVEL 8.7 MG/DL (8.5-10.1); CARBON DIOXIDE LEVEL 22 MEQ/L (21-32); CHLORIDE LEVEL 112 MEQ/L (98-107); CREATININE FOR GFR 0.87 MG/DL (0.70-1.30); GLOMERULAR FILTRATION RATE > 60.0 (>56); GLUCOSE, FASTING 117 MG/DL (70-100); POTASSIUM SERUM 3.7 MEQ/L (3.5-5.1); SODIUM LEVEL 142 MEQ/L (136-145); TOTAL PROTEIN 7.4 GM/DL (6.4-8.2)
[2018-01-06 16:58] LABS: CHLAMYDIA DNA AMPLIFICATION NEGATIVE (NEGATIVE); GC DNA AMPLIFICATION NEGATIVE (NEGATIVE)
[2018-01-08 11:59] LABS: HEPATITIS B SURFACE ANTIGEN NEGATIVE (NEGATIVE)
[2018-01-08 12:21] LABS: HIV 1&2 SCREEN CENTAUR NEGATIVE (NEGATIVE)
[2018-01-08 15:07] LABS: HEPATITIS C VIRUS ABY INDEX > 11.0 INDEX (<0.8)
[2018-01-13 00:07] LABS: HCV RNA NAA QUALITATIVE Positive (Negative)
== END ==
LOC: M LAB 14:40
DX: F11.20 Opioid dependence, uncomplicated (principal)
CPT/HCPCS: 93005

== ENCOUNTER → 2018-02-23 | Outpatient (CLI) | payer MEDICARE, MEDICAID ==
[2018-02-23 14:57] LABS: ALBUMIN 3.6 GM/DL (3.2-5.2); ALBUMIN/GLOBULIN RATIO 0.88 (1.00-1.93); ALKALINE PHOSPHATASE 136 U/L (45-117); ALT/SGPT 30 U/L (12-78); AST/SGOT 47 U/L (7-37); BILIRUBIN,DIRECT 0.2 MG/DL (0.0-0.2); BILIRUBIN,TOTAL 0.5 MG/DL (0.2-1.0); TOTAL PROTEIN 7.7 GM/DL (6.4-8.2)
[2018-02-25 10:20] LABS: HEPATITIS C QUANTITATION 576460 IU/mL (.)
== END ==
LOC: M LAB 14:05
DX: B18.2 Chronic viral hepatitis C (principal)
CPT/HCPCS: 80076

== ENCOUNTER → 2018-02-23 | Outpatient (REF) | payer MEDICARE, MEDICAID, OTHER | LOC: M SFHCPLAZ 13:09 | DX: B18.2 Chronic viral hepatitis C (principal) ==

== ENCOUNTER 2018-02-25 09:56 | Day surgery (SDC) | payer MEDICARE, MEDICAID ==
[2018-02-25] MEDS: NS 1,000 ML IV (11:00)
[2018-02-25] MEDS ORDERED: PROPOFOL 200 MG/20 ML VIAL As Ordered ×2 (11:39)
== END 2018-02-25 12:54 | disposition home or self-care (01) ==
LOC: M OPP 09:56
DX: Z12.11 Encounter for screening for malignant neoplasm of colon (principal); Z98.0 Intestinal bypass and anastomosis status; K64.8 Other hemorrhoids; I85.00 Esophageal varices without bleeding; I86.4 Gastric varices; R12 Heartburn; K50.90 Crohn's disease, unspecified, without complications; F32.9 Major depressive disorder, single episode, unspecified; M54.9 Dorsalgia, unspecified; G62.9 Polyneuropathy, unspecified; B19.20 Unspecified viral hepatitis C without hepatic coma; F17.210 Nicotine dependence, cigarettes, uncomplicated; Z79.899 Other long term (current) drug therapy; Z88.8 Allergy status to other drugs, medicaments and biological substances; Z87.19 Personal history of other diseases of the digestive system; Z83.79 Family history of other diseases of the digestive system; Z80.51 Family history of malignant neoplasm of kidney; Z80.1 Family history of malignant neoplasm of trachea, bronchus and lung; Z80.41 Family history of malignant neoplasm of ovary; Z80.8 Family history of malignant neoplasm of other organs or systems
CPT/HCPCS: G0105

== ENCOUNTER → 2018-03-10 | Outpatient (CLI) | payer MEDICARE, MEDICAID ==
[2018-03-10 10:58] LABS: BASO % 0.2 % (0.0-1.0); EOS # 0.2 10^3/uL (0.0-0.50); HEMATOCRIT 40.9 % (42.0-52.0); HEMOGLOBIN 13.9 g/dl (13.5-17.5); IMMATURE GRANULOCYTE % 0.4 % (0-3.0); LYMPH # 2.4 10^3/uL (1.5-4.5); LYMPH % 26.7 % (24.0-44.0); MEAN CORPUSCULAR HEMOGLOBIN 31.3 pg (27.0-33.0); MEAN CORPUSCULAR VOLUME 92.1 fl (80.0-96.0); MONO # 0.7 10^3/uL (0.0-0.8); MONO % 7.7 % (0.0-5.0); NEUTROPHILS # 5.8 10^3/uL (1.8-7.7); PLATELET COUNT, AUTOMATED 249 10^3/uL (150-450); RED BLOOD COUNT 4.44 10^6/uL (4.30-6.10); RED CELL DISTRIBUTION WIDTH 12.4 % (11.5-14.5); WHITE BLOOD COUNT 9.2 10^3/uL (4.0-10.0)
[2018-03-10 11:12] LABS: INR 1.02; PROTHROMBIN TIME 13.5 SECONDS (12.1-14.4)
[2018-03-10 11:31] LABS: ALBUMIN 3.2 GM/DL (3.2-5.2); ALBUMIN/GLOBULIN RATIO 0.74 (1.00-1.93); ALKALINE PHOSPHATASE 141 U/L (45-117); ALT/SGPT 10 U/L (12-78); ANION GAP 8 MEQ/L (8-16); AST/SGOT 16 U/L (7-37); BILIRUBIN,TOTAL 0.6 MG/DL (0.2-1.0); BLOOD UREA NITROGEN 14 MG/DL (7-18); CALCIUM LEVEL 8.7 MG/DL (8.5-10.1); CARBON DIOXIDE LEVEL 25 MEQ/L (21-32); CHLORIDE LEVEL 106 MEQ/L (98-107); CREATININE FOR GFR 0.81 MG/DL (0.70-1.30); GLOMERULAR FILTRATION RATE > 60.0 (>56); GLUCOSE, FASTING 109 MG/DL (70-100); IRON (FE) 52 UG/DL (65-175); PERCENT SATURATION 15.9 % (19.7-50.0); POTASSIUM SERUM 3.7 MEQ/L (3.5-5.1); SODIUM LEVEL 139 MEQ/L (136-145); TOTAL IRON BINDING CAPACITY 327 UG/DL (250-450); TOTAL PROTEIN 7.5 GM/DL (6.4-8.2)
[2018-03-10 11:37] LABS: VITAMIN B12 LEVEL 388 PG/ML (247-911)
[2018-03-13 00:07] LABS: ANCA-ATYPICAL <1:20 titer (Neg:<1:20); ANTI DOUBLE STRAND-DNA AB <1 IU/mL (0-9); ANTI-MITOCHONDRIAL ANTIBODY 3.3 Units (0.0-20.0); ANTINUCLEAR ANTIBODIES DIRECT Positive (Negative); CERULOPLASMIN 37.3 mg/dL (16.0-31.0); CYTOPLASMIC NEUTROP AB ANCA-C <1:20 titer (Neg:<1:20); PERINUCLEAR AB ANCA-P <1:20 titer (Neg:<1:20); RNP ANTIBODIES 0.2 AI (0.0-0.9); SJOGREN'S ANTI SS-A 0.4 AI (0.0-0.9); SJOGREN'S ANTI SS-B 1.1 AI (0.0-0.9); SMITH ANTIBODIES <0.2 AI (0.0-0.9)
[2018-03-15 14:10] LABS: PROMETHEUS IBD ANTIBODIES SEE SEPARATE REPORT
[2018-03-15 14:11] LABS: PROMETHEUS IBD SNP SEE SEPARATE REPORT
== END ==
LOC: M LAB 10:20
DX: K50.018 Crohn's disease of small intestine with other complication (principal)
CPT/HCPCS: 83550

== ENCOUNTER → 2018-03-25 | Outpatient (CLI) | payer MEDICARE, MEDICAID ==
[~2018-03-25] MED LIST changes: -/ADVA50050; -/PANT40TA PO; -APAP325T PO; -CARA1TAB2 PO; -CELE20TA; -CHLO0.124 MT; -CIPR25SS OR; -CIPR500S PO; -CIPR500T89 PO; -CLON1TAB PO; -DILA2TAB2 PO; -DILAUDID PO; -DRON2.5C4 PO; -ENTO3CAP5 PO; -ERYT25TA PO; -FERR325T3 PO; -FLAG500T OR; -FLAG500T PO; -FOLI1TAB2 PO; -FOLI1TAB86 PO; +GASTROGRAFIN SOLUTION 30ML (Q9963) As Ordered; -GUAI100S7 PO; -HEPA500020 SQ; -IBUP400T OR; -IMOD2TAB16 PO; -INSUH10VL SC; +ISOVUE-370 76% 100ML VIAL (Q9967) As Ordered; -LEVS0.123 SL; -LOPE2TAB PO; -LOPE2TAB3 PO; -LOPERAMIDE PO; -LYRI75CA PO; -MAGN1TAB25 PO; -MAGN200T3 PO; -MAGN400T5 PO; -MAGN500T PO; -MARI10CA PO; -MESA24CASA PO; -METO10TA2 PO; -METR1CAP PO; -MICR10CA PO; -MOBI7.5T10 PO; -MS C30TA PO; -MYLASSUD OR; -MYLI40DR PO; -NAPRPOW4 PO; -NEUR300C PO; -NEUR600T PO; -NEXI20CA PO; -NEXI40CA PO; -NEXIUM PO; -NICO14DI3 TD; -NICO21DI26 EXT; -NICO21DI4 TD; -NICO21DI5 TD; -NICO21PAT TD; -NYST10CR TOP; -ONDA4INJ48 IV; -ONDA4TAB6 PO; -OXYC-517 PO; -OXYC15TA76 PO; -OXYC1SOL PO; -OXYC5CAP28 PO; -PENT500C PO; -PENT500C4 PO; -PENTASA MT; -PENTASA PO; -PERC5TAB PO; -PERCOCET PO; -POTA20TA2; -PRED10TA2 OR; -PRED1TAB32 PO; -PRIL40CA PO; -PROT1TAB2 PO; -QUES4POW PO; -QUET1TAB7 PO; -REGL10TA6 PO; -REME15TA PO; -SALI0.9I2 IV; -SERO50TA PO; -SUCR1SS PO; -TRAZ100T; -TYLE1TAB5 PO; -TYLE325T5 PO; -Thiamine Hcl PO; -VANC125C2 PO; -VIT D PO; -VITA100T60 PO; -VITMTA PO; -ZOFR8TAB PO; -ZOFRAN SL; -ZOLO100T PO; -magnesium PO; -tpn IV
== END ==
LOC: M RAD 06:59
DX: K50.90 Crohn's disease, unspecified, without complications (principal); K76.6 Portal hypertension; I85.01 Esophageal varices with bleeding
CPT/HCPCS: Q9963

== ENCOUNTER → 2018-05-04 | Outpatient (REF) | payer MEDICARE, MEDICAID ==
[2018-05-07 00:11] LABS: AMPHETAMINE SCREEN, URINE Negative ng/mL (Cutoff=1000); BARBITURATES SCREEN, URINE Negative ng/mL (Cutoff=200); BENZODIAZEPINES, URINE SCREEN Negative ng/mL (Cutoff=200); CANNABINOID SCREEN, URINE Negative ng/mL (Cutoff=20); COCAINE SCREEN, URINE Negative ng/mL (Cutoff=300); CREATININE, URINE 46.1 mg/dL (20.0-300.0); FENTANYL URINE SCREEN Negative pg/mL (Cutoff=2000); METHADONE, URINE SCREEN Negative ng/mL (Cutoff=300); OPIATE SCREEN, URINE Negative ng/mL (Cutoff=300); OXYCODONE, SCREEN, URINE Negative ng/mL (Cutoff=100); PCP SCREEN, URINE Negative ng/mL (Cutoff=25); SPECIFIC GRAVITY, URINE 1.011 (.); pH, URINE 8.4 (4.5-8.9)
== END ==
LOC: M LAB REF 20:23
DX: F11.21 Opioid dependence, in remission (principal)
CPT/HCPCS: 80307

== ENCOUNTER → 2018-10-05 | Outpatient (REF) | payer OTHER ==
[~2018-10-05] MED LIST changes: +/ADVA50050; +/PANT40TA PO; +APAP325T4 PO; +CARA1TAB2 PO; +CARA1TAB6 PO; +CELE20TA; +CHLO0.124 MT; +CIPR-249 PO; +CIPR25SS OR; +CIPR500S PO; +CIPR500T89 PO; +CLON1TAB8 PO; +DILA2TAB6 PO; +DILAUDID PO; +DRON2.5C11 PO; +ENTO3CAP5 PO; +ERYT25TA PO; +FERR325T3 PO; +FLAG500T OR; +FLAG500T PO; +FOLI1TAB11 PO; +FOLI1TAB86 PO; +GABA-1171; -GASTROGRAFIN SOLUTION 30ML (Q9963) As Ordered; +GUAI100S27 PO; +HEPA500020 SQ; +IBUP-1022 PO; +IBUP400T OR; +IMOD2TAB16 PO; +INSUH10VL SC; -ISOVUE-370 76% 100ML VIAL (Q9967) As Ordered; +LEVS0.123 SL; +LOPE2CAP PO; +LOPE2TAB PO; +LOPE2TAB3 PO; +LOPERAMIDE PO; +LYRI75CA PO; +MAGN1TAB25 PO; +MAGN200T3 PO; +MAGN400T5 PO; +MAGN500T PO; +MARI10CA PO; +MESA24CASA PO; +METH10CO PO; +METO10TA2 PO; +METR375C3 PO; +MICR10CA PO; +MOBI4TAB PO; +MS C30TA6 PO; +MYLASSUD OR; +MYLI40DR PO; +NAPRPOW4 PO; +NEUR300C PO; +NEUR600T PO; +NEXI20CA PO; +NEXI40CA PO; +NEXIUM PO; +NICO14DI3 TD; +NICO21DI26 EXT; +NICO21DI4 TD; +NICO21DI6 TD; +NICO21PAT TD; +NYST10CR TOP; +ONDA4INJ48 IV; +ONDA4TAB6 PO; +OXYC-517 PO; +OXYC15TA76 PO; +OXYC1SOL3 PO; +OXYC1TAB23 PO; +OXYC5CAP28 PO; +PENT500C PO; +PENT500C4 PO; +PENTASA MT; +PENTASA PO; +PERC5TAB PO; +PERCOCET PO; +POTA20TA2; +PRED10TA2 OR; +PRED1TAB32 PO; +PREG100CA PO; +PREG50CA; +PRIL20CA9 PO; +PRIL40CA PO; +PROT1TAB2 PO; +QUES4POW PO; +QUET1TAB7 PO; +REGL10TA6 PO; +REME15TA PO; +SALI0.9I2 IV; +SERO50TA PO; +SUCR1SS PO; +TRAZ100T; +TYLE1TAB5 PO; +TYLE325T5 PO; +Thiamine Hcl PO; +VANC125C2 PO; +VIT D PO; +VITA100T60 PO; +VITMTA PO; +ZOFR8TAB24 PO; +ZOFRAN SL; +ZOLO100T PO; +magnesium PO; +tpn IV
== END ==
LOC: M SFHCPLAZ 14:05
PROVIDERS: ATTEND Nurse Practitioner Family
DX: B18.2 Chronic viral hepatitis C (principal); Z00.00 Encounter for general adult medical examination without abnormal findings; Z13.220 Encounter for screening for lipoid disorders; F32.9 Major depressive disorder, single episode, unspecified; Z12.5 Encounter for screening for malignant neoplasm of prostate; G62.9 Polyneuropathy, unspecified

== ENCOUNTER 2018-11-03 15:49 | Emergency (ER) | payer MEDICAID, OTHER ==
[~2018-11-03] VITALS: Ht 182.9 cm; Wt 75.9 kg
[2018-11-03 16:35] LABS: BASO % 0.4 % (0.0-1.0); EOS # 0.1 10^3/uL (0.0-0.50); HEMATOCRIT 43.3 % (42.0-52.0); LYMPH # 2.9 10^3/uL (1.5-4.5); LYMPH % 29.4 % (24.0-44.0); MEAN CORPUSCULAR HEMOGLOBIN 33.5 pg (27.0-33.0); MEAN CORPUSCULAR HGB CONC 34.6 g/dl (32.0-36.5); MEAN CORPUSCULAR VOLUME 96.7 fl (80.0-96.0); MONO # 0.7 10^3/uL (0.0-0.8); MONO % 7.3 % (0.0-5.0); NEUTROPHILS % 61.7 % (36.0-66.0); PLATELET COUNT, AUTOMATED 248 10^3/uL (150-450); RED BLOOD COUNT 4.48 10^6/uL (4.30-6.10); WHITE BLOOD COUNT 9.7 10^3/uL (4.0-10.0)
[2018-11-03 17:05] LABS: ALBUMIN 3.6 GM/DL (3.2-5.2); ALT/SGPT 11 U/L (12-78); BILIRUBIN,DIRECT 0.1 MG/DL (0.0-0.2); BILIRUBIN,TOTAL 0.3 MG/DL (0.2-1.0); BLOOD UREA NITROGEN 9 MG/DL (7-18); CALCIUM LEVEL 9.1 MG/DL (8.5-10.1); CARBON DIOXIDE LEVEL 23 MEQ/L (21-32); CHLORIDE LEVEL 110 MEQ/L (98-107); CREATININE FOR GFR 0.77 MG/DL (0.70-1.30); GLOMERULAR FILTRATION RATE > 60.0 (>56); GLUCOSE, FASTING 119 MG/DL (70-100); LIPASE 106 U/L (73-393); POTASSIUM SERUM 3.6 MEQ/L (3.5-5.1); SODIUM LEVEL 141 MEQ/L (136-145); TOTAL PROTEIN 7.4 GM/DL (6.4-8.2)
[2018-11-03] MEDS ORDERED: KETOROLAC 30 MG/ML VIAL (J1885) IV ONE (17:15)
[2018-11-03 17:36] LABS: CPK CREATINE PHOSPHOKINASE 56 U/L (39-308); MB/CK RELATIVE INDEX 2.32 (< OR =4); TROPONIN I < 0.02 NG/ML (< 0.10)
--- NOTE | 2018-11-03 18:23 | REP ---
CHEST PA AND LATERAL: 11/03/2018. Comparison: CT chest 09/22/2015, PA and lateral 01/14/2015. Clinical history: Left-sided abdominal pain, nausea, vomiting, fatigue. States prior surgery for Crohn disease now with left posterior pain. Findings: Previous indwelling catheter is removed. Lungs are well inflated. There is no infiltrate, effusion, atelectasis or mass. The heart, mediastinal and hilar contours are grossly intact. There is some apical pleuroparenchymal scarring bilaterally, unchanged. The aorta and airway were grossly intact. Bony thorax shows no compression deformity of focal lesion. Impression: 1. Some bilateral apical pleural parenchymal scarring but no acute cardiopulmonary disease. Electronically Signed by Stephon Stout MD 11/03/2018 06:14 P
[2018-11-03] MEDS ORDERED: ISOVUE-370 76% 100ML VIAL (Q9967) As Ordered ONE (18:52)
--- NOTE | 2018-11-03 19:37 | REPVR ---
EXAM: CT Abdomen and Pelvis With Contrast EXAM DATE/TIME: 11/03/2018 6:54 PM CLINICAL HISTORY: 58 years old, male; Pain; Abdominal pain; Localized; Left; Additional info: Left-sided abd pain, HX of crohn's TECHNIQUE: Axial computed tomography images of the abdomen and pelvis with intravenous contrast. All CT scans at this facility use at least one of these dose optimization techniques: automated exposure control; mA and/or kV adjustment per patient size (includes targeted exams where dose is matched to clinical indication); or iterative reconstruction. Coronal and sagittal reformatted images were created and reviewed. CONTRAST: Contrast Material: 100 ml of ISOVUE 370; Contrast Route: IV COMPARISON: CT ABD PELVIS WITH CONTRAST 03/25/2018 9:18 AM FINDINGS: Lower thorax: No suspicious mass or airspace process in the visualized lung bases. ABDOMEN: Liver: Liver appears normal with no focal abnormality. Gallbladder and bile ducts: Gallbladder is surgically absent. Pancreas: Pancreas shows no concerning mass. Pancreatic tail calcifications are present as seen previously, suggesting prior pancreatitis. Spleen: Spleen is unremarkable aside from multiple punctate splenic calcifications. Adrenals: Adrenal glands are normal in appearance. Kidneys and ureters: Kidneys appear normal, with no stone, solid mass or hydronephrosis. Stomach and bowel: No evidence of small bowel obstruction. Postsurgical changes are seen around the cecum. Appendix is not convincingly identified. No RLQ inflammation. No evidence of acute diverticulitis. Appendix: See Stomach And Bowel Finding. PELVIS: Bladder: Bladder is decompressed and not well evaluated. Reproductive: Dystrophic prostate calcifications are noted. ABDOMEN and PELVIS: Intraperitoneal space: No pneumoperitoneum. Bones/joints: Bony structures show no acute fracture or destructive process. Soft tissues: Unremarkable. Vasculature: Atherosclerotic change present in the aorta, without aneurysm. Perigastric venous varices are present, nonspecific. Lymph nodes: Normal. No enlarged lymph nodes. IMPRESSION: 1. No acute surgical or inflammatory intra-abdominal or pelvic process. 2. Prior bowel postsurgical changes without evidence of obstruction or acute complication. Electronically signed by: Geraldo Bradford On 11/03/2018 19:36:59 PM
[2018-11-03] MEDS ORDERED: TIGA300C2 PO (19:41)
[2018-11-03] MEDS ORDERED: DICY20TA11 PO (19:41)
[2018-11-03 19:53] VITALS: BP 122/76
== END 2018-11-03 19:54 | disposition home or self-care (01) ==
LOC: M ED 15:49
DX: B34.9 Viral infection, unspecified (principal); J44.9 Chronic obstructive pulmonary disease, unspecified; F33.9 Major depressive disorder, recurrent, unspecified; F41.9 Anxiety disorder, unspecified; K50.90 Crohn's disease, unspecified, without complications; K86.2 Cyst of pancreas; Z87.19 Personal history of other diseases of the digestive system; Z88.0 Allergy status to penicillin; Z88.5 Allergy status to narcotic agent; F17.210 Nicotine dependence, cigarettes, uncomplicated
CPT/HCPCS: 71046; 74177; 80048; 80076; 81001; 82550; 82553; 83690; 85025; 96374; 99284; J1885; Q9967

== ENCOUNTER 2020-05-30 16:52 | Emergency (ER) | payer OTHER ==
[~2020-05-30] VITALS: Ht 185.4 cm; Wt 73.5 kg
[~2020-05-30 16:52] MED LIST changes: -/ADVA50050; -/PANT40TA PO; +ADVA1AER2; +BUDE3CAP15 PO; +DICY20TA11 PO; +GUAI100L6 PO; -GUAI100S27 PO; -MAGN1TAB25 PO; +MAGN1TAB26 PO; +NICO21DI3 TD; -NICO21PAT TD; +NYST100029 TOP; -NYST10CR TOP; +ONDA4INJ4 IV; -ONDA4INJ48 IV; +OXYC-1 PO; -OXYC15TA76 PO; +TIGA300C2 PO; -VANC125C2 PO; +VANC125C3 PO
[2020-05-30 16:53] VITALS: BP 158/83
[2020-05-30] MEDS ORDERED: IBUP-1022 PO (17:03)
[2020-05-30] MEDS ORDERED: GABA-1171 (17:03)
[2020-05-30] MEDS ORDERED: OMEP-218 (17:03)
[2020-05-30] MEDS ORDERED: CLEO300C2 PO (17:03)
[2020-05-30] MEDS ORDERED: NS 1,000 ML IV SCH (17:44)
[2020-05-30] MEDS ORDERED: METOCLOPRAMIDE INJ 10MG/2ML VIAL (J2765 PER 1) IV ONE (17:45)
== END 2020-05-30 18:45 | disposition left against medical advice (07) ==
LOC: M ED 16:52
DX: M25.511 Pain in right shoulder (principal); R42 Dizziness and giddiness; Z53.9 Procedure and treatment not carried out, unspecified reason; I10 Essential (primary) hypertension; J44.9 Chronic obstructive pulmonary disease, unspecified; F33.9 Major depressive disorder, recurrent, unspecified; F41.9 Anxiety disorder, unspecified; K50.90 Crohn's disease, unspecified, without complications; K29.70 Gastritis, unspecified, without bleeding; Z88.0 Allergy status to penicillin; Z88.5 Allergy status to narcotic agent; F17.200 Nicotine dependence, unspecified, uncomplicated; Z79.899 Other long term (current) drug therapy

== ENCOUNTER 2020-12-18 21:01 | Emergency (ER) | payer MEDICARE ==
[~2020-12-18] VITALS: Ht 170.2 cm; Wt 75.2 kg
[~2020-12-18 21:01] MED LIST changes: +CLEO300C2 PO; +ERY-250T24 PO; -ERYT25TA PO; +MIRT-62 PO; +OMEP-218; -QUET1TAB7 PO; +QUET25TA3 PO; -REME15TA PO; +THIAMINE 100 MG TAB PO SCH
[2020-12-18 21:41] LABS: HEMATOCRIT 35.4 % (42.0-52.0); HEMOGLOBIN 11.7 g/dl (13.5-17.5); MEAN CORPUSCULAR HEMOGLOBIN 31.5 pg (27.0-33.0); MEAN CORPUSCULAR HGB CONC 33.1 g/dl (32.0-36.5); MEAN CORPUSCULAR VOLUME 95.2 fl (80.0-96.0); PLATELET COUNT, AUTOMATED 306 10^3/uL (150-450); RED BLOOD COUNT 3.72 10^6/uL (4.30-6.10); WHITE BLOOD COUNT 9.1 10^3/uL (4.0-10.0)
[2020-12-18 22:16] LABS: ACETAMINOPHEN LEVEL < 2.0 UG/ML (10.0-30.0); ALBUMIN 3.6 GM/DL (3.2-5.2); ALT/SGPT 12 U/L (12-78); AMPHETAMINES LEVEL URINE NEGATIVE (NEGATIVE); BARBITURATES URINE NEGATIVE (NEGATIVE); BENZODIAZEPINES URINE NEGATIVE (NEGATIVE); BILIRUBIN,DIRECT 0.1 MG/DL (0.0-0.2); BILIRUBIN,TOTAL 0.3 MG/DL (0.2-1.0); BLOOD UREA NITROGEN 15 MG/DL (7-18); CALCIUM LEVEL 8.8 MG/DL (8.8-10.2); CANNABINOIDS URINE POSITIVE (NEGATIVE); CARBON DIOXIDE LEVEL 22 MEQ/L (21-32); CHLORIDE LEVEL 108 MEQ/L (98-107); COCAINE METABOLITE URINE NEGATIVE (NEGATIVE); CREATININE FOR GFR 0.85 MG/DL (0.70-1.30); GLOMERULAR FILTRATION RATE > 60.0 (>49); GLUCOSE, FASTING 87 MG/DL (70-100); METHADONE URINE NEGATIVE (NEGATIVE); OPIATES URINE NEGATIVE (NEGATIVE); PHENCYCLIDINE URINE NEGATIVE (NEGATIVE); POTASSIUM SERUM 3.7 MEQ/L (3.5-5.1); SALICYLATE LEVEL 3.2 MG/DL (5.0-30.0); SODIUM LEVEL 140 MEQ/L (136-145); TOTAL PROTEIN 7.3 GM/DL (6.4-8.2)
[2020-12-18 22:54] LABS: RSV AMPLIFICATION NEGATIVE (NEGATIVE)
--- NOTE | 2020-12-18 23:36 | REPVR ---
PROCEDURE INFORMATION: Exam: XR Chest Exam date and time: 12/18/2020 10:07 PM Age: 60 years old Clinical indication: Cough TECHNIQUE: Imaging protocol: XR of the chest Views: 1 view. COMPARISON: CR Chest, 2 view PA, Lat 11/03/2018 5:46 PM FINDINGS: Limitations: Examination is limited by low inspiratory volume. Lungs: Unremarkable. No consolidation. Pleural spaces: Unremarkable. No pleural effusion. No pneumothorax. Heart/Mediastinum: Unremarkable. No cardiomegaly. Diaphragm: Elevated left hemidiaphragm. Bones/joints: Unremarkable. Intraperitoneal space: Multiple surgical multiple surgical clips in right upper quadrant of the abdomen. IMPRESSION: No acute infiltrate. Electronically signed by: Michelle Baldwin On 12/18/2020 23:36:32 PM
[2020-12-19] MEDS ORDERED: LORazepam 2 MG TAB PO PRN (00:15)
[2020-12-19] MEDS ORDERED: HALOPERIDOL 5MG/ML VIAL (J1630 PER 1) As Ordered ONE (02:49)
[2020-12-19] MEDS ORDERED: LORazepam 2 MG/ML VIAL As Ordered ONE (02:50)
[2020-12-19] MEDS ORDERED: diphenhydrAMINE 50MG/ML VIAL (J1200) As Ordered ONE (02:50)
[2020-12-19] MEDS ORDERED: LORazepam 2 MG/ML VIAL IM ONE (02:55)
[2020-12-19] MEDS ORDERED: diphenhydrAMINE 50MG/ML VIAL (J1200) IM ONE (02:55)
[2020-12-19] MEDS ORDERED: HALOPERIDOL 5MG/ML VIAL (J1630 PER 1) IM ONE (02:55)
[2020-12-19] MEDS ORDERED: MULTIVITAMINS/MINERALS THERAP 1 TAB PO SCH (09:00)
[2020-12-19] MEDS ORDERED: FOLIC ACID 1 MG TAB PO SCH (09:00)
[2020-12-19 12:13] VITALS: BP 131/79
== END 2020-12-19 12:18 | disposition home or self-care (01) ==
LOC: M ED 21:01
DX: F43.20 Adjustment disorder, unspecified (principal); F10.229 Alcohol dependence with intoxication, unspecified; K50.90 Crohn's disease, unspecified, without complications; K21.9 Gastro-esophageal reflux disease without esophagitis; Z79.899 Other long term (current) drug therapy; Z88.0 Allergy status to penicillin; Z88.5 Allergy status to narcotic agent
CPT/HCPCS: 71045; 80048; 80076; 80143; 80307; 82077; 84443; 85027; 87631; 93041; 94760; 96372; 99285; J1200; J1630; J2060

== ENCOUNTER 2023-08-05 13:56 | Emergency (ER) | payer MEDICARE, MEDICAID ==
[~2023-08-05] VITALS: Ht 182.9 cm; Wt 70.3 kg
[~2023-08-05 13:56] MED LIST changes: -DICY20TA11 PO; +DICY20TA20 PO; +IBUP200C25 PO; -MIRT-62 PO; +MIRT-88 PO; +OMEP-173; -OMEP-218; +QUET1TAB17 PO; -QUET25TA3 PO; -THIAMINE 100 MG TAB PO SCH
[2023-08-05 15:07] VITALS: TEMP 96.8
[2023-08-05] MEDS ORDERED: ACET-716 PO (16:34)
[2023-08-05] MEDS ORDERED: ACETAMINOPH W/CODEINE #3 TAB UD PO ONE (16:35)
[2023-08-05 16:39] VITALS: BP 138/76; O2SAT 98
[2023-08-08] MEDS ORDERED: ACET-716 PO (11:31)
== END 2023-08-05 16:45 | disposition home or self-care (01) ==
LOC: M ED 13:56
DX: S83.92XA Sprain of unspecified site of left knee, initial encounter (principal); W19.XXXA Unspecified fall, initial encounter; Y92.009 Unspecified place in unspecified non-institutional (private) residence as the place of occurrence of the external cause; Y93.89 Activity, other specified; Y99.8 Other external cause status; J44.9 Chronic obstructive pulmonary disease, unspecified; K50.90 Crohn's disease, unspecified, without complications; Z88.0 Allergy status to penicillin; Z88.5 Allergy status to narcotic agent; Z79.899 Other long term (current) drug therapy

== ENCOUNTER 2023-08-07 17:50 | Emergency (ER) | payer MEDICARE, MEDICAID ==
[~2023-08-07] VITALS: Ht 182.9 cm; Wt 69.9 kg
[~2023-08-07 17:50] MED LIST changes: +ACET-716 PO
[2023-08-07 17:53] VITALS: BP 148/86; TEMP 98.6; O2SAT 98
[2023-08-07 19:42] LABS: AMPHETAMINES LEVEL URINE NEGATIVE (NEGATIVE); BARBITURATES URINE NEGATIVE (NEGATIVE); BENZODIAZEPINES URINE NEGATIVE (NEGATIVE); CANNABINOIDS URINE NEGATIVE (NEGATIVE); COCAINE METABOLITE URINE NEGATIVE (NEGATIVE); METHADONE URINE NEGATIVE (NEGATIVE); OPIATES URINE NEGATIVE (NEGATIVE); PHENCYCLIDINE URINE NEGATIVE (NEGATIVE)
[2023-08-08] MEDS ORDERED: ACET-716 PO (11:31)
== END 2023-08-07 21:12 | disposition left against medical advice (07) ==
LOC: M ED 17:50
DX: Z53.21 Procedure and treatment not carried out due to patient leaving prior to being seen by health care provider (principal)

== ENCOUNTER 2023-09-27 16:05 | Inpatient (IN) | payer MEDICARE, MEDICAID ==
[~2023-09-27] VITALS: Ht 175.3 cm; Wt 64.7 kg
[2023-09-27] MEDS ORDERED: fentaNYL 100 MCG/2 ML INJECTION IV ONE ×2 (16:35→18:25)
[2023-09-27 16:59] LABS: BASO # 0.1 10^3/uL (0.0-0.2); BASO % 0.7 % (0.0-1.0); EOS # 0.2 10^3/uL (0.0-0.5); EOS % 2.5 % (0.0-3.0); HEMATOCRIT 40.2 % (42.0-52.0); HEMOGLOBIN 13.5 g/dl (13.5-17.5); LYMPH # 1.7 10^3/uL (1.5-5.0); MEAN CORPUSCULAR HEMOGLOBIN 31.8 pg (27.0-33.0); MEAN CORPUSCULAR HGB CONC 33.6 g/dl (32.0-36.5); MEAN CORPUSCULAR VOLUME 94.8 fl (80.0-96.0); MONO # 0.5 10^3/uL (0.0-0.8); MONO % 7.2 % (2.0-8.0); NEUTROPHILS # 4.7 10^3/uL (1.5-8.5); NEUTROPHILS % 65.3 % (36.0-66.0); RED BLOOD COUNT 4.24 10^6/uL (4.30-6.10); WHITE BLOOD COUNT 7.1 10^3/uL (4.0-10.0)
[2023-09-27 17:04] LABS: PLATELET COUNT, AUTOMATED 261 10^3/uL (150-450)
[2023-09-27 17:30] LABS: BLOOD UREA NITROGEN 11 MG/DL (9-23); CALCIUM LEVEL 8.5 MG/DL (8.3-10.6); CARBON DIOXIDE LEVEL 24 MMOL/L (20-31); CHLORIDE LEVEL 108 MMOL/L (98-107); CREATININE FOR GFR 0.71 MG/DL (0.70-1.30); GLOMERULAR FILTRATION RATE > 60.0 (>49); GLUCOSE, FASTING 98 MG/DL (74-106); POTASSIUM SERUM 4.5 MMOL/L (3.5-5.1); SODIUM LEVEL 139 MMOL/L (136-145)
[2023-09-27 18:42] LABS: RSV AMPLIFICATION NEGATIVE (NEGATIVE)
[2023-09-27] MEDS ORDERED: HOME MED LIST COMPLETE! XX SCH (18:45)
[2023-09-27] MEDS: LORazepam 2 MG TAB PO PRN ×2 (20:27→23:57)
[2023-09-27] MEDS: MORPHINE 2 MG/ML 1ML VIAL IV PRN ×2 (20:27→23:57)
[2023-09-27] MEDS: THIAMINE 100 MG TAB PO SCH (20:27)
[2023-09-27] MEDS: DOCUSATE SODIUM 100MG CAPSULE PO SCH (21:00)
[2023-09-27] MEDS: HEPARIN SOD (PORCINE) 5000UNITS/ML 1ML VIAL/SYRINGE SC SCH (22:00)
[2023-09-27] MEDS: ACETAMINOPHEN TAB 650MG DOSE (2X325MG) PO PRN (23:57)
[2023-09-28] MEDS ORDERED: UNRESOLVED CLARIFICATION ENTRY XX SCH (00:01)
[2023-09-28] MEDS: MORPHINE 2 MG/ML 1ML VIAL IV PRN ×3 (04:15→12:18)
[2023-09-28] MEDS: HEPARIN SOD (PORCINE) 5000UNITS/ML 1ML VIAL/SYRINGE SC SCH ×3 (05:56→21:50)
[2023-09-28] MEDS: ACETAMINOPHEN TAB 650MG DOSE (2X325MG) PO PRN ×4 (06:25→21:59)
[2023-09-28 08:18] LABS: HEMATOCRIT 37.6 % (42.0-52.0); HEMOGLOBIN 12.5 g/dl (13.5-17.5); MEAN CORPUSCULAR HEMOGLOBIN 31.2 pg (27.0-33.0); MEAN CORPUSCULAR HGB CONC 33.2 g/dl (32.0-36.5); MEAN CORPUSCULAR VOLUME 93.8 fl (80.0-96.0); PLATELET COUNT, AUTOMATED 245 10^3/uL (150-450); RED BLOOD COUNT 4.01 10^6/uL (4.30-6.10)
[2023-09-28 08:36] LABS: INR 1.03; PROTHROMBIN TIME 13.2 SECONDS (12.5-14.5)
[2023-09-28 08:48] LABS: ALKALINE PHOSPHATASE 92 U/L (46-116); ALT/SGPT < 9 U/L (7.0-40); AST/SGOT 12 U/L (<34); BILIRUBIN,TOTAL 0.3 MG/DL (0.3-1.2); BLOOD UREA NITROGEN 13 MG/DL (9-23); CALCIUM LEVEL 8.8 MG/DL (8.3-10.6); CARBON DIOXIDE LEVEL 26 MMOL/L (20-31); CHLORIDE LEVEL 106 MMOL/L (98-107); CREATININE FOR GFR 0.76 MG/DL (0.70-1.30); GLOMERULAR FILTRATION RATE > 60.0 (>49); GLUCOSE, FASTING 90 MG/DL (74-106); POTASSIUM SERUM 4.1 MMOL/L (3.5-5.1); SODIUM LEVEL 138 MMOL/L (136-145); TOTAL PROTEIN 6.2 G/DL (5.7-8.2)
[2023-09-28] MEDS: DOCUSATE SODIUM 100MG CAPSULE PO SCH ×2 (09:00→21:51)
[2023-09-28] MEDS: THIAMINE 100 MG TAB PO SCH ×2 (10:54→21:51)
[2023-09-28] MEDS: MULTIVITAMINS/MINERALS THERAP 1 TAB PO SCH (10:54)
[2023-09-28] MEDS: FOLIC ACID 1MG TAB PO SCH (10:58)
[2023-09-28] MEDS: NS 1,000 ML IV SCH (16:10)
[2023-09-28] MEDS: PERCOCET 5MG/325MG TAB PO PRN (16:57)
[2023-09-28 18:00] VITALS: BP 164/76; TEMP 98.1; O2SAT 78
[2023-09-28] MEDS ORDERED: MORPHINE 2 MG/ML 1ML VIAL IV PRN (18:00)
[2023-09-28 21:07] VITALS: BP 176/87; TEMP 98.1; O2SAT 99
[2023-09-28 22:00] VITALS: BP 176/87
[2023-09-29] VITALS (8 sets, daily range): BP systolic 131–156; BP diastolic 70–82; TEMP 97.2–98.4; O2SAT 94–98
[2023-09-29] MEDS: PERCOCET 5MG/325MG TAB PO PRN ×3 (00:22→10:30)
[2023-09-29] MEDS: ACETAMINOPHEN TAB 650MG DOSE (2X325MG) PO PRN (05:16)
[2023-09-29] MEDS: HEPARIN SOD (PORCINE) 5000UNITS/ML 1ML VIAL/SYRINGE SC SCH ×4 (05:17→21:57)
[2023-09-29] MEDS: NS 1,000 ML IV SCH ×2 (05:17→21:57)
[2023-09-29 06:22] LABS: BASO % 0.4 % (0.0-1.0); EOS # 0.2 10^3/uL (0.0-0.5); EOS % 1.9 % (0.0-3.0); HEMATOCRIT 37.3 % (42.0-52.0); HEMOGLOBIN 12.4 g/dl (13.5-17.5); LYMPH # 1.8 10^3/uL (1.5-5.0); LYMPH % 19.8 % (24.0-44.0); MEAN CORPUSCULAR HEMOGLOBIN 30.8 pg (27.0-33.0); MEAN CORPUSCULAR HGB CONC 33.2 g/dl (32.0-36.5); MEAN CORPUSCULAR VOLUME 92.8 fl (80.0-96.0); MONO % 10.8 % (2.0-8.0); NEUTROPHILS # 5.9 10^3/uL (1.5-8.5); NEUTROPHILS % 66.7 % (36.0-66.0); PLATELET COUNT, AUTOMATED 238 10^3/uL (150-450); RED BLOOD COUNT 4.02 10^6/uL (4.30-6.10); WHITE BLOOD COUNT 8.9 10^3/uL (4.0-10.0)
[2023-09-29 06:33] LABS: INR 1.08; PROTHROMBIN TIME 13.7 SECONDS (12.5-14.5)
[2023-09-29 06:50] LABS: BLOOD UREA NITROGEN 12 MG/DL (9-23); CALCIUM LEVEL 8.6 MG/DL (8.3-10.6); CARBON DIOXIDE LEVEL 28 MMOL/L (20-31); CHLORIDE LEVEL 104 MMOL/L (98-107); CREATININE FOR GFR 0.71 MG/DL (0.70-1.30); GLOMERULAR FILTRATION RATE > 60.0 (>49); GLUCOSE, FASTING 97 MG/DL (74-106); MAGNESIUM LEVEL 1.4 MG/DL (1.8-2.4); POTASSIUM SERUM 3.8 MMOL/L (3.5-5.1); SODIUM LEVEL 136 MMOL/L (136-145)
[2023-09-29] MEDS: DOCUSATE SODIUM 100MG CAPSULE PO SCH ×2 (09:00→21:00)
[2023-09-29] MEDS: MAGNESIUM OXIDE 400MG TAB (MAG-OX) PO SCH ×2 (09:11→21:58)
[2023-09-29] MEDS: THIAMINE 100 MG TAB PO SCH ×2 (09:11→21:57)
[2023-09-29] MEDS: MULTIVITAMINS/MINERALS THERAP 1 TAB PO SCH (09:11)
[2023-09-29] MEDS: MAG SULF 1GM/100ML (MAG RUN) 1 GM in IV 1 EA IV SCH ×2 (09:11→10:30)
[2023-09-29] MEDS: FOLIC ACID 1MG TAB PO SCH (09:11)
[2023-09-29] MEDS ORDERED: LIDOCAINE 2% 100MG/5ML SDV (FOR ANES.) As Ordered ONE (16:16)
[2023-09-29] MEDS ORDERED: propofoL 200 MG/20 ML VIAL As Ordered ONE (16:16)
[2023-09-29] MEDS ORDERED: MIDAZOLAM INJ 2MG/2ML VIAL As Ordered ONE (16:17)
[2023-09-29] MEDS ORDERED: fentaNYL 100 MCG/2 ML INJECTION As Ordered ONE (16:17)
[2023-09-29] MEDS ORDERED: EPINEPHrine INJ 1 MG/ML 1ML AMP As Ordered ONE (16:35)
[2023-09-29] MEDS ORDERED: ceFAZolin 1GM VIAL As Ordered ONE (16:35)
[2023-09-29] MEDS ORDERED: ROCURONIUM BROMIDE 50MG/5ML VIAL As Ordered ONE ×2 (16:52→17:37)
[2023-09-29] MEDS ORDERED: CLINDAMYCIN 900MG/50ML PREMIX BAG As Ordered ONE (17:05)
[2023-09-29] MEDS ORDERED: ONDANSETRON 4MG 2ML VIAL As Ordered ONE (17:28)
[2023-09-29] MEDS ORDERED: ACETAMINOPHEN 1000MG 100ML IV BAG As Ordered ONE (17:39)
[2023-09-29] MEDS ORDERED: HYDROmorphone HCL 2MG/ML 1ML VIAL As Ordered ONE (17:44)
[2023-09-29] MEDS ORDERED: SUGAMMADEX SODIUM 500 MG/5 ML VIAL (BRIDION) As Ordered ONE (17:48)
[2023-09-29] MEDS ORDERED: dexmedeTOMIDine (4MCG/ML)200MCG/50ML BTL (PRECEDEX) As Ordered ONE (17:49)
[2023-09-29] MEDS ORDERED: PHENYLephrine 500MCG 5ML (100MCG/ML) SYRINGE As Ordered ONE (18:39)
[2023-09-29] MEDS ORDERED: ePHEDrine SULFATE 25 MG/5 ML(5MG/ML) SYRINGE As Ordered ONE (18:39)
[2023-09-29] MEDS ORDERED: oxyCODONE 5MG TAB PO PRN (19:25)
[2023-09-29] MEDS ORDERED: HYDROMORPHONE HCL 0.5 MG/ 0.5 ML SYRINGE IV PRN (19:25)
[2023-09-29] MEDS ORDERED: LR 1,000 ML IV SCH (19:25)
[2023-09-29] MEDS ORDERED: ONDANSETRON 4MG 2ML VIAL IV PRN (19:25)
[2023-09-29] MEDS ORDERED: fentaNYL 100 MCG/2 ML INJECTION IV PRN (19:25)
[2023-09-29] MEDS: CLINDAMYCIN 900 MG in IV 1 EA IV SCH (21:57)
[2023-09-30] VITALS (9 sets, daily range): BP systolic 96–142; BP diastolic 52–86; TEMP 97.2–98.6; O2SAT 94–97
[2023-09-30] MEDS: PERCOCET 5MG/325MG TAB PO PRN ×5 (00:51→18:49)
[2023-09-30] MEDS: CLINDAMYCIN 900 MG in IV 1 EA IV SCH (05:09)
[2023-09-30] MEDS: HEPARIN SOD (PORCINE) 5000UNITS/ML 1ML VIAL/SYRINGE SC SCH ×3 (05:09→20:29)
[2023-09-30 07:53] LABS: INR 1.05; PROTHROMBIN TIME 13.4 SECONDS (12.5-14.5)
[2023-09-30 07:57] LABS: BLOOD UREA NITROGEN 11 MG/DL (9-23); CALCIUM LEVEL 8.2 MG/DL (8.3-10.6); CARBON DIOXIDE LEVEL 26 MMOL/L (20-31); CHLORIDE LEVEL 106 MMOL/L (98-107); CREATININE FOR GFR 0.62 MG/DL (0.70-1.30); GLOMERULAR FILTRATION RATE > 60.0 (>49); GLUCOSE, FASTING 105 MG/DL (74-106); MAGNESIUM LEVEL 1.8 MG/DL (1.8-2.4); POTASSIUM SERUM 3.9 MMOL/L (3.5-5.1); SODIUM LEVEL 137 MMOL/L (136-145)
[2023-09-30] MEDS: DOCUSATE SODIUM 100MG CAPSULE PO SCH ×2 (09:00→20:28)
[2023-09-30] MEDS: MAGNESIUM OXIDE 400MG TAB (MAG-OX) PO SCH ×2 (09:32→20:29)
[2023-09-30] MEDS: THIAMINE 100 MG TAB PO SCH (09:32)
[2023-09-30] MEDS: MULTIVITAMINS/MINERALS THERAP 1 TAB PO SCH (09:32)
[2023-09-30] MEDS: FOLIC ACID 1MG TAB PO SCH (09:32)
[2023-09-30] MEDS: NS 1,000 ML IV SCH (09:33)
[2023-10-01] MEDS: PERCOCET 5MG/325MG TAB PO PRN ×5 (00:43→21:59)
[2023-10-01 06:00] VITALS: BP 139/67; TEMP 98.8; O2SAT 94
[2023-10-01] MEDS: HEPARIN SOD (PORCINE) 5000UNITS/ML 1ML VIAL/SYRINGE SC SCH ×3 (06:11→21:50)
[2023-10-01 07:06] LABS: INR 1.13; PROTHROMBIN TIME 14.2 SECONDS (12.5-14.5)
[2023-10-01 07:20] LABS: BLOOD UREA NITROGEN 12 MG/DL (9-23); CALCIUM LEVEL 8.4 MG/DL (8.3-10.6); CARBON DIOXIDE LEVEL 29 MMOL/L (20-31); CHLORIDE LEVEL 103 MMOL/L (98-107); CREATININE FOR GFR 0.68 MG/DL (0.70-1.30); GLOMERULAR FILTRATION RATE > 60.0 (>49); GLUCOSE, FASTING 119 MG/DL (74-106); MAGNESIUM LEVEL 1.6 MG/DL (1.8-2.4); POTASSIUM SERUM 3.6 MMOL/L (3.5-5.1); SODIUM LEVEL 137 MMOL/L (136-145)
[2023-10-01] MEDS: DOCUSATE SODIUM 100MG CAPSULE PO SCH ×2 (09:24→21:00)
[2023-10-01] MEDS: FOLIC ACID 1MG TAB PO SCH (09:25)
[2023-10-01] MEDS: MULTIVITAMINS/MINERALS THERAP 1 TAB PO SCH (09:25)
[2023-10-01] MEDS: MAGNESIUM OXIDE 400MG TAB (MAG-OX) PO SCH ×2 (09:25→22:02)
[2023-10-01] MEDS ORDERED: IBUPROFEN 400MG TAB PO ONE (14:30)
[2023-10-01 14:40] VITALS: BP 147/105; TEMP 97.7; O2SAT 99
[2023-10-01 22:15] VITALS: BP 131/67; TEMP 97.9; O2SAT 98
[2023-10-02] MEDS: PERCOCET 5MG/325MG TAB PO PRN ×3 (03:10→14:38)
[2023-10-02] MEDS: HEPARIN SOD (PORCINE) 5000UNITS/ML 1ML VIAL/SYRINGE SC SCH ×2 (05:46→14:37)
[2023-10-02 05:47] VITALS: BP 133/68; TEMP 97.9; O2SAT 96
[2023-10-02 06:38] LABS: INR 1.1; PROTHROMBIN TIME 13.9 SECONDS (12.5-14.5)
[2023-10-02 06:56] LABS: BLOOD UREA NITROGEN 14 MG/DL (9-23); CALCIUM LEVEL 8.5 MG/DL (8.3-10.6); CARBON DIOXIDE LEVEL 32 MMOL/L (20-31); CHLORIDE LEVEL 105 MMOL/L (98-107); CREATININE FOR GFR 0.71 MG/DL (0.70-1.30); GLOMERULAR FILTRATION RATE > 60.0 (>49); GLUCOSE, FASTING 97 MG/DL (74-106); MAGNESIUM LEVEL 1.7 MG/DL (1.8-2.4); POTASSIUM SERUM 4.2 MMOL/L (3.5-5.1); SODIUM LEVEL 141 MMOL/L (136-145)
[2023-10-02] MEDS: FOLIC ACID 1MG TAB PO SCH (08:26)
[2023-10-02] MEDS: DOCUSATE SODIUM 100MG CAPSULE PO SCH (08:26)
[2023-10-02] MEDS: MULTIVITAMINS/MINERALS THERAP 1 TAB PO SCH (08:26)
[2023-10-02] MEDS ORDERED: MAGNESIUM OXIDE 400MG TAB (MAG-OX) PO SCH (09:00)
[2023-10-02 09:20] VITALS: BP 133/68
[2023-10-02 13:55] VITALS: BP 132/72; TEMP 98.6; O2SAT 100
== END 2023-10-02 21:06 | disposition left against medical advice (07) | DRG 522 ==
LOC: M ED 16:05 → M ED INP 19:38 → ENRESERV 09-28 15:58 → M MS5PR 09-28 18:00
PROVIDERS: ADMIT Internal Medicine; ATTEND Student in an Organized Health Care Education/Training Program
PROC: 0SR90JZ Replacement of Right Hip Joint with Synthetic Substitute, Open Approach (ICD-10-PCS; principal; 2023-09-29 16:00)
DX: S72.091A Other fracture of head and neck of right femur, initial encounter for closed fracture (principal); K86.1 Other chronic pancreatitis; K50.90 Crohn's disease, unspecified, without complications; F10.10 Alcohol abuse, uncomplicated; K21.9 Gastro-esophageal reflux disease without esophagitis; W18.09XA Striking against other object with subsequent fall, initial encounter; Y92.009 Unspecified place in unspecified non-institutional (private) residence as the place of occurrence of the external cause; Y93.9 Activity, unspecified; Y99.8 Other external cause status; E83.42 Hypomagnesemia; Z90.49 Acquired absence of other specified parts of digestive tract; Z79.1 Long term (current) use of non-steroidal anti-inflammatories (NSAID); Z79.899 Other long term (current) drug therapy

== ENCOUNTER 2023-12-10 17:32 | Emergency (ER) | payer MEDICAID, MEDICARE, OTHER ==
[~2023-12-10] VITALS: Ht 182.9 cm; Wt 72.6 kg
[2023-12-10 17:33] VITALS: BP 137/64; TEMP 97.6; O2SAT 100
[2023-12-10] MEDS: ACETAMINOPH W/CODEINE #3 TAB UD PO ONE (20:50)
[2023-12-10] MEDS ORDERED: ACET-716 PO (22:12)
== END 2023-12-10 22:19 | disposition home or self-care (01) ==
LOC: M ED 17:32
DX: M25.511 Pain in right shoulder (principal); M25.552 Pain in left hip; F17.200 Nicotine dependence, unspecified, uncomplicated; Z88.0 Allergy status to penicillin; Z88.5 Allergy status to narcotic agent

== ENCOUNTER 2024-02-06 17:52 | Emergency (ER) | payer OTHER ==
[~2024-02-06] VITALS: Ht 182.9 cm; Wt 67.3 kg
[2024-02-06 17:52] VITALS: BP 152/79; TEMP 97.9; O2SAT 98
[2024-02-06] MEDS ORDERED: IBUPROFEN 600MG TAB PO ONE (18:55)
== END 2024-02-06 19:35 | disposition left against medical advice (07) ==
LOC: M ED 17:52
DX: R05.9 Cough, unspecified (principal); Z53.9 Procedure and treatment not carried out, unspecified reason; Z88.5 Allergy status to narcotic agent

== ENCOUNTER → 2024-03-07 | Outpatient (CLI) | payer OTHER ==
[~2024-03-07] MED LIST changes: +ONDA-282 PO; -ONDA4TAB6 PO
== END ==
LOC: M SOG 14:11
PROVIDERS: ATTEND Physician Assistant
DX: Z47.89 Encounter for other orthopedic aftercare (principal); M17.12 Unilateral primary osteoarthritis, left knee; M16.11 Unilateral primary osteoarthritis, right hip; M25.552 Pain in left hip; M25.562 Pain in left knee; Z96.642 Presence of left artificial hip joint

== ENCOUNTER 2024-06-02 10:38 | Emergency (ER) | payer OTHER | END 2024-06-02 12:27 | disposition left against medical advice (07) | LOC: M ED 10:38 | DX: Z53.21 Procedure and treatment not carried out due to patient leaving prior to being seen by health care provider (principal) ==

== ENCOUNTER 2024-06-08 21:25 | Emergency (ER) | payer OTHER ==
[~2024-06-08] VITALS: Ht 182.9 cm; Wt 70.8 kg
[2024-06-08 21:28] VITALS: BP 123/76; TEMP 97.8; O2SAT 99
== END 2024-06-08 22:02 | disposition left against medical advice (07) ==
LOC: M ED 21:25
DX: Z53.21 Procedure and treatment not carried out due to patient leaving prior to being seen by health care provider (principal)

== ENCOUNTER 2024-06-09 03:27 | Emergency (ER) | payer OTHER ==
[~2024-06-09] VITALS: Ht 182.9 cm; Wt 70.9 kg
[2024-06-09 03:31] VITALS: BP 120/73; TEMP 98; O2SAT 99
== END 2024-06-09 06:00 | disposition left against medical advice (07) ==
LOC: M ED 03:27
DX: Z53.21 Procedure and treatment not carried out due to patient leaving prior to being seen by health care provider (principal)

== ENCOUNTER 2024-06-11 21:41 | Emergency (ER) | payer OTHER ==
[~2024-06-11] VITALS: Ht 182.9 cm; Wt 72.1 kg
[2024-06-11 22:55] LABS: RSV AMPLIFICATION NEGATIVE (NEGATIVE)
[2024-06-12] MEDS: IPRATROPIUM 0.5MG/ALBUTEROL 2.5MG INH SOL UD 3ML (DUONEB) NEB ONE (00:03)
[2024-06-12] MEDS: ALBUTEROL SULFATE 2.5MG/0.5ML INH NEB SOLN NEB ONE (00:03)
[2024-06-12] MEDS: KETOROLAC 30 MG/ML 1ML VIAL IM ONE (00:12)
[2024-06-12] MEDS ORDERED: ZITHTAB PO (00:56)
[2024-06-12 01:23] VITALS: BP 160/76; TEMP 99; O2SAT 96
== END 2024-06-12 01:30 | disposition home or self-care (01) ==
LOC: M ED 21:41
DX: B34.8 Other viral infections of unspecified site (principal); F17.200 Nicotine dependence, unspecified, uncomplicated; Z88.5 Allergy status to narcotic agent; Z91.09 Other allergy status, other than to drugs and biological substances; Z79.1 Long term (current) use of non-steroidal anti-inflammatories (NSAID); Z79.2 Long term (current) use of antibiotics
CPT/HCPCS: 71046; 87631; 94640; 96372; 99283; J1885

== ENCOUNTER 2025-05-17 09:12 | Emergency (ER) | payer OTHER, MEDICAID ==
[~2025-05-17] VITALS: Ht 182.9 cm; Wt 70.4 kg
[~2025-05-17 09:12] MED LIST changes: -DRON2.5C11 PO; +DRON2.5C17 PO; -IBUP-1022 PO; +IBUP600T42 PO; +MAG30ORA18 OR; -MYLASSUD OR; +PREG-35 PO; -PREG100CA PO; -PREG50CA; +PREG50CA87; +VANC125C13 PO; -VANC125C3 PO; +ZITHTAB PO
[2025-05-17 09:17] VITALS: BP 134/77; TEMP 97.9; O2SAT 99
== END 2025-05-17 11:08 | disposition home or self-care (01) ==
LOC: M ED 09:12
DX: S00.532A Contusion of oral cavity, initial encounter (principal); Y92.9 Unspecified place or not applicable; Y93.9 Activity, unspecified; Y99.9 Unspecified external cause status; Z88.5 Allergy status to narcotic agent

== ENCOUNTER 2025-06-02 21:58 | Emergency (ER) | payer OTHER, MEDICAID ==
[~2025-06-02] VITALS: Ht 182.9 cm; Wt 75.1 kg
[2025-06-02 22:01] VITALS: BP 145/75; TEMP 96.6; O2SAT 99
== END 2025-06-03 02:35 | disposition left against medical advice (07) ==
LOC: M ED 21:58
DX: Z53.21 Procedure and treatment not carried out due to patient leaving prior to being seen by health care provider (principal)